=== PATIENT | female | born 1955 | race Caucasian/White ===

== ENCOUNTER 2017-02-12 12:15 | Outpatient (CLI) | payer MEDICARE | END 2017-02-12 12:16 | disposition home or self-care (01) | LOC: BICMAMMO 12:15 | PROVIDERS: ATTEND Family Medicine | DX: Z12.31 Encounter for screening mammogram for malignant neoplasm of breast (principal); Z80.3 Family history of malignant neoplasm of breast | CPT/HCPCS: 77063; 77067 ==

== ENCOUNTER 2017-07-30 13:42 | Outpatient (CLI) | payer MEDICARE | END 2017-07-30 13:43 | disposition home or self-care (01) | LOC: BICRAD 13:42 | PROVIDERS: ATTEND Anesthesiology Pain Medicine | DX: M79.5 Residual foreign body in soft tissue (principal); M96.1 Postlaminectomy syndrome, not elsewhere classified; G89.21 Chronic pain due to trauma; L08.9 Local infection of the skin and subcutaneous tissue, unspecified; R93.8 Abnormal findings on diagnostic imaging of other specified body structures ==

== ENCOUNTER 2017-08-02 10:47 | Outpatient (CLI) | payer MEDICARE ==
--- NOTE | 2017-08-02 12:20 | MRI ---
MRI RIGHT HINDFOOT WITHOUT CONTRAST: Date: 08/02/17 HISTORY: Foreign body. COMPARISON: Outside facility radiograph dated 07/30/17. FINDINGS: Bones: No acute fracture. No malalignment. Exam is somewhat limited due to motion artifact. Mild degenerative disease of the calcaneocuboid joint. Moderate midfoot degenerative changes. There a re erosions of the second and third tarsometatarsal joints. Ligaments: AITFL and PITFL are intact, as well as the ATFL, PTFL, and TFL. Superficial and deep deltoid ligament s are intact. Tendons: Achilles tendon intact. Extensor and flexor tendons are intact. Soft Tissues: At the region of interest markers, there is a focal area of skin and subcutaneous soft tissue swellin g. Fluid extending to near the medial margin of the cortex of the calcaneus. Underlying marrow signal intact. Calcaneal cortex intact. Likely a small sinus tract extending to skin. IMPRESSION: Corresponding to the recent radiographs, at the level of the radiopaque foreign object on the prior e xam, there is an area of skin thickening, subcutaneous edema, and likely a small sinus tract. No unde rlying osteitis or osteomyelitis. POS: [facility]
== END 2017-08-02 10:48 | disposition home or self-care (01) ==
LOC: MRI 10:47
PROVIDERS: ATTEND Anesthesiology Pain Medicine
DX: M79.5 Residual foreign body in soft tissue (principal); R60.0 Localized edema

== ENCOUNTER → 2017-10-23 | Day surgery (SDC) | payer MEDICARE ==
[2017-10-22 13:30] VITALS: BMI 41.1
[~2017-10-23] MED LIST: Bupivacaine/Epinephrine 0.25% 30 ML VIAL ONE; CEFAZOLIN/Water 2 GM/20 ML SYRINGE ONE; Fentanyl 100 MCG/2 ML VIAL ONE; Fentanyl 250 MCG/5 ML VIAL ONE; Lidocaine 2% 10 ML INJ ONE; Midazolam HCl 2 mg/2 ml Vial ONE; Promethazine HCl 25 MG/ML VIAL ONE
[2017-10-23 08:12] LABS: #Eosinphils 0.4 thou/uL (0.0-0.7); #Lymphocytes 1.6 thou/uL (1.20-3.40); #Monocytes 0.3 thou/uL (0.11-0.59); #Neutrophils 6.3 thou/uL (1.40-6.50); %Basophils 0.2 % (0.0-1.0); %Eosinophils 4.6 % (0.0-10.0); %Lymphocytes 18.7 % (21.0-51.0); %Monocytes 3.9 % (0.0-10.0); %Neutrophils 72.6 % (42.0-75.0); Hemoglobin 12.3 g/dL (12.0-16.0); Mean Corpuscular HGB CONC 33.4 g/dL (32.0-36.0); Mean Corpuscular Hemoglobin 28.1 pg (27.0-31.0); Mean Corpuscular Volume 84.3 fL (78.0-98.0); Platelet Count 193 thou/uL (130-400); RBC Distribution Width 14.9 % (11.5-14.5); Red Blood Cell (RBC) Count 4.39 mill/uL (4.20-5.40); White Blood Cell (WBC) Count 8.7 thou/uL (4.8-10.8)
[2017-10-23 08:39] LABS: ALT (SGPT) 8 U/L (8-55); AST (SGOT) 15 U/L (5-34); Albumin 3.9 g/dL (3.4-4.8); Alkaline Phosphatase 93 U/L (40-150); Anion Gap 15 mmol/L (10-20); BUN (Urea Nitrogen) 22 mg/dL (9.8-20.1); Bilirubin, Total 0.5 mg/dL (0.2-1.2); Calc. Creatinine Clearance 115 mL/min (70-130); Calcium 9.6 mg/dL (7.8-10.44); Carbon Dioxide 25 mmol/L (23-31); Chloride 103 mmol/L (98-107); Estimated GFR-MDRD 70; Globulin 3.5 g/dL (2.4-3.5); Glucose 113 mg/dL (80-115); Potassium 3.9 mmol/L (3.5-5.1); Protein, Total 7.4 g/dL (6.0-8.3); Sodium 139 mmol/L (136-145)
--- NOTE | 2017-10-23 13:43 | OP ---
DATE OF PROCEDURE: 10/23/2017 PREOPERATIVE DIAGNOSIS: Depleted pain pump. SURGEON: Mane Lantigua M.D. PROCEDURE PERFORMED: Removal and replacement of implantable programmable intrathecal pain pump. INDICATIONS: A 62-year-old female who has post-laminectomy syndrome who has had a functioning pain p ump for over 10 years that the life expectancy of the battery has depleted and she needed replacement . FINDINGS: Very contracted capsule, thick contracted capsule. PROCEDURE IN DETAIL: After informed consent was obtained, the patient was taken to the operating ileana m and given total intravenous anesthesia, placed in the supine position. Abdomen was prepped and fly ped in usual fashion. Local anesthesia infiltrated subcutaneously and deep with 0.5% Marcaine. A tr ansverse incision was performed through the old scar. The subcu divided sharply. The capsule was en countered. It was very thick. It was opened with a blade down to the pump and then further extended medially and laterally. The capsule was very contracted. In order to release it, I had to go both inferior and superior on the capsule, then was able to slowly release the pain pump from its capsule. I was able to remove the sutures that had held it in place and then deliver it outside. The CSF ch bridgette was cannulated and aspirated. We had good CSF flow. Then, the tubing was disconnected from th e old pump. The old pump was then moved to the back table after being labeled as such. It was then aspirated and all deliverable drug was removed from the old pump. The new pump was then primed by re moving the saline from its cavity and the drug was then placed within the new pump. The new pump was then brought up to the field and connected to the tubing. The tubing was secured with 0 silk suture tie. The cavity was thoroughly irrigated with saline. Two 2-0 Prolene sutures were placed to help keep it from rotating and then these were threaded through the channels on the upper portion of the p ain pump. The deliverable nipple was placed inferiorly into the pocket and the pain pump was tied do wn with the sutures. No tubing was anterior to the pain pump. The subcu was reapproximated with int errupted 2-0 Vicryl and the skin closed with running subcuticular 4-0 Rapide. Steri-Strips applied. Sterile bandage applied. The patient tolerated the procedure well and was transferred to recovery i n good condition. Sponge and needle count verified correct x2.
--- NOTE | 2017-10-28 08:25 | EKG ---
Test Reason : PREOP Blood Pressure : / mmHG Vent. Rate : 063 BPM Atrial Rate : 063 BPM P-R Int : 184 ms QRS Dur : 086 ms QT Int : 416 ms P-R-T Axes : 038 034 056 degrees QTc Int : 425 ms Normal sinus rhythm Normal ECG When compared with ECG of 29-DEC-2010 08:20, No significant change was found Confirmed by DR. Everardo GARCIA ([id number]) on 10/28/2017 8:25:07 AM Referred By: LALITHA Confirmed By:DR. Everardo GARCIA
== END ==
LOC: SDC 07:27
PROVIDERS: ATTEND Surgery
PROC: 0JPT0VZ Removal of Infusion Pump from Trunk Subcutaneous Tissue and Fascia, Open Approach (ICD-10-PCS; principal; 2017-10-23)
PROC: 0JH80VZ Insertion of Infusion Pump into Abdomen Subcutaneous Tissue and Fascia, Open Approach (ICD-10-PCS; 2017-10-23)
DX: Z45.1 Encounter for adjustment and management of infusion pump (principal); Z79.02 Long term (current) use of antithrombotics/antiplatelets; Z79.82 Long term (current) use of aspirin; Z79.899 Other long term (current) drug therapy; Z88.2 Allergy status to sulfonamides; Z88.8 Allergy status to other drugs, medicaments and biological substances; Z88.1 Allergy status to other antibiotic agents
CPT/HCPCS: 62362; 80053; 85025; 93005; 96374 ×2; C1772; 36415; 93010; J2250; J2550; J3010

== ENCOUNTER 2017-10-30 13:20 | Outpatient (CLI) | payer MEDICARE ==
--- NOTE | 2017-10-30 15:42 | MRI ---
CERVICAL SPINE MRI WITHOUT CONTRAST: Date: 10/30/17 HISTORY: Pain. COMPARISON: 02/18/13. TECHNIQUE: Cervical spine MRI is performed without intravenous Gadolinium administration. Multisequential, multi planar imaging is performed. FINDINGS: Appropriate T1 marrow signal intensity of the cervical vertebra. Cervical spine vertebral body height is maintained. No fracture. 2.7 mm anterolisthesis of C3 upon C4, 2.8 mm retrolisthesis of C5 upon C 6. No significant STIR hyperintensity to suggest vertebral body edema or ligamentous injury. Visualized brain parenchyma, cervicomedullary junction, cervical cord, and the upper thoracic cord quinn ve a normal size and signal intensity. C2-C3: No significant disc osteophyte complex. No significant central canal stenosis. Foramina are patent. C3-C4: No significant disc osteophyte complex. Severe right and moderate left foraminal narrowing. C4-C5: Broad based disc osteophyte complex abuts the thecal sac. There is flattening of the ventral thecal s ac and deformity of the cervical cord. Moderate central canal stenosis. Severe right and moderate lef t foraminal narrowing due to degenerative changes of the uncovertebral joint. C6-C7: Broad based disc osteophyte complex abuts the thecal sac. Ventral subarachnoid space is effaced. Ther e is flattening of the cervical cord. Mild to moderate central canal stenosis. Moderate bilateral for aminal narrowing. C6-C7: Broad based disc osteophyte complex abuts the thecal sac. Ventral CSF signal intensity is effaced in the midline. There is mild deformity of the cord. Mild to moderate central canal stenosis. Mild bilat eral foraminal narrowing. C7-T1: No high grade central canal stenosis or high grade neural foraminal narrowing. IMPRESSION: 1. Degenerative changes of the cervical spine as above. There is significant central canal stenosis at C4-C5. 2. There appears to be significant right neural foraminal narrowing at C3-C4. Additional neural fora lora narrowing as above. POS: [facility]
== END 2017-10-30 13:21 | disposition home or self-care (01) ==
LOC: MRI 13:20
PROVIDERS: ATTEND Psychiatry & Neurology Neurology
DX: R29.898 Other symptoms and signs involving the musculoskeletal system (principal); M47.892 Other spondylosis, cervical region; M48.02 Spinal stenosis, cervical region; M99.81 Other biomechanical lesions of cervical region
CPT/HCPCS: 72141

== ENCOUNTER 2017-12-16 08:28 | Day surgery (SDC) | payer MEDICARE ==
[2017-12-13 14:08] VITALS: BMI 40.4
--- NOTE | 2017-12-15 23:06 | HP ---
HISTORY OF PRESENT ILLNESS: Ms. Bonilla is a 62-year-old woman who presents for evaluation of sudden onset and progression of left-sided hand numbness, weakness, and muscular atrophy, particularly in t he hand that onset of August. She has an MRI of her neck which is negative for any major pathology oth er than moderate stenosis centrally in the upper cervical spine. She denies any significant right up per extremity symptoms. Of note, she also has an EMG performed that reveals ulnar neuropathy of the left upper extremity . PAST MEDICAL HISTORY: Significant for CVA, chronic pain, gastroesophageal reflux disease, hyperchole sterolemia. MEDICATIONS: Aspirin, bumetanide, clonazepam, clonidine, clopidogrel, Crestor, ranitidine, sertralin e. PHYSICAL EXAMINATION: The patient is alert and oriented x3. Gait is altered secondary to stroke sym ptoms. She does use a walker to ambulate. Right upper extremity unaffected, normal strength. Left upper extremity movements seem to be intrinsic hand muscles of the left hand as well as the hypothena r eminence. 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 Negative Tinel's at the ulnar nerve and cubital tunnel of the left upper extremity. ASSESSMENT: Ulnar neuropathy. PLAN: Dr. Bell met with the patient and reviewed her EMG and symptoms and ultimately advocated for a left ulnar nerve decompression. He explained to the patient, the risks, benefits, and alternatives of the procedure. The patient expressed understanding and would like to move forward surgery as dis cussed. I do believe the patient is mentally competent and capable of making medical decision for he rself and we will move forward with surgery as planned. Taco Dupree PA-C, dictating for Bonifacio Bell M.D.
[2017-12-16] MEDS ORDERED: PROPOFOL 200 MG/20 ML VIAL ONE (09:21)
[2017-12-16] MEDS ORDERED: Lidocaine 1% PF 5 ML VIAL ONE (09:21)
[2017-12-16] MEDS ORDERED: Ondansetron PF 4 MG/2 ML Vial ONE (09:21)
[2017-12-16] MEDS ORDERED: Dexamethasone 20 MG/5 ML VIAL ONE (09:21)
[2017-12-16] MEDS ORDERED: Bupivacaine HCl 0.5%/Epinephrine 1:200,000/PF 30 ml Vial ONE (09:39)
[2017-12-16] MEDS ORDERED: Fentanyl 100 MCG/2 ML VIAL ONE (09:40)
[2017-12-16] MEDS ORDERED: CEFAZOLIN 2 GM/50 ML BAG ONE (09:48)
--- NOTE | 2017-12-16 10:47 | OP ---
DATE OF SERVICE: 12/16/2017 SURGEON: Bonifacio Bell M.D. TACKING STITCH REMOVER: Taco Dupree PA-C. INDICATIONS: Hand weakness, muscle atrophy and numbness. DIAGNOSES: Left ulnar neuropathy with muscle atrophy and weakness. PROCEDURE: Left ulnar nerve decompression. ANESTHESIA: General. TECHNIQUE: The patient was brought into the operating room and placed under general anesthesia. She was placed on the table in supine position. Her arm was prepped and draped up to the level of the a xilla. A linear incision was planned over the ulnar groove at the level of the elbow. This area was carefully infiltrated with lidocaine. After prepping and draping and after an appropriate operative pause, the incision was created. A self-retaining retractor was placed. The ulnar nerve could be p alpated within the ulnar groove. An adhesiolysis was performed along the nerve extending both proxim al and distal directions. The nerve was found to be compressed rather substantially by adhesions. T he nerve also had a flattened appearance as well. After decompressing the nerve, the wound was irrig ated. Hemostasis was maintained throughout. The wound was then closed in a single layer technique. The procedure came to an end without known complication.
== END 2017-12-16 13:30 | disposition home or self-care (01) ==
LOC: SDC 08:28
PROVIDERS: ATTEND Neurological Surgery
PROC: 01N40ZZ Release Ulnar Nerve, Open Approach (ICD-10-PCS; principal; 2017-12-16)
DX: G56.22 Lesion of ulnar nerve, left upper limb (principal); K21.9 Gastro-esophageal reflux disease without esophagitis; E78.00 Pure hypercholesterolemia, unspecified; Z86.73 Personal history of transient ischemic attack (TIA), and cerebral infarction without residual deficits; Z79.02 Long term (current) use of antithrombotics/antiplatelets; Z79.82 Long term (current) use of aspirin; Z79.899 Other long term (current) drug therapy; Z88.1 Allergy status to other antibiotic agents; Z88.2 Allergy status to sulfonamides; Z88.8 Allergy status to other drugs, medicaments and biological substances
CPT/HCPCS: J0670; J3010

== ENCOUNTER 2017-12-20 00:12 | Emergency (ER) | payer MEDICARE ==
--- NOTE | 2017-12-20 09:18 | CT ---
PRELIMINARY REPORT/[facility]/EMERGENTY AFTER-HOURS PROCEDURE CT Head Without Intravenous Contrast EXAM DATE/TIME: 12/20/2017 12:29 AM CLINICAL HISTORY: 62 years old, female; Injury or trauma; Fall; Initial encounter; Blunt trauma (contusions or hematoma s); Consciousness not specified; Patient HX: Fell at home, has swelling to RT islam, is currently of f blood thinners pending surgery in a few days. TECHNIQUE: Axial computed tomography images of the head/brain without intravenous contrast. COMPARISON: No relevant prior studies available. FINDINGS: Brain: No acute intracranial hemorrhage or mass effect. Old infarct in the inferior left cerebellum. No definite acute infarct by CT. Ventricles: Ventricle size is normal for age. Bones/joints: No definite acute skull fracture. Sinuses: Included paranasal sinuses are essentially clear. Mastoid air cells: No significant acute finding. Soft tissues: Evidence for soft tissue injury/scalp hematoma in the frontal region. IMPRESSION: 1. No acute intracranial bleed or mass effect. 2. Old infarct in the inferior left cerebellum. 3. Other findings discussed above. Thank you for allowing us to participate in the care of your patient. Dictated and Authenticated by: Raffaele Perla MD 12/20/2017 12:58 AM Central Time ([place] & [place]) FINAL REPORT CT HEAD NONCONTRAST: DATE: 12/20/2017. TIME: Performed on an emergency basis at 0030 hours. HISTORY: Fall. Head injury. FINDINGS: Agree with the preliminary report by Dr. Perla by [facility]. Prominent swelling and hematoma over the right frontal calvarium. No acute intracranial abnormalities are demonstrated. POS: [facility]
== END 2017-12-20 02:10 | disposition home or self-care (01) ==
LOC: ERS 00:12
DX: S00.83XA Contusion of other part of head, initial encounter (principal); F32.9 Major depressive disorder, single episode, unspecified; E78.5 Hyperlipidemia, unspecified; W18.30XA Fall on same level, unspecified, initial encounter
CPT/HCPCS: 70450

== ENCOUNTER 2018-01-07 12:53 | Outpatient (CLI) | payer MEDICARE ==
--- NOTE | 2018-01-07 17:58 | CT ---
CT RIGHT ELBOW WITHOUT CONTRAST: Date: 01/07/18 HISTORY: Preop. Fall. COMPARISON: None. FINDINGS: Bones: There is circumferential osteophyte formation of the radial head. There is a small, 2.0 x 4.0 mm, lik brandt annular ligament calcification, less likely a free body. Large osteophyte formation of the olecra non of the trochlea. Large coracoid process osteophyte formation is present. There is some enthesopat hic change in the triceps tendon insertion of the olecranon. There is extensive hypertrophic bone formation within the anterior and posterior olecranon fossa, whi ch may be from a prior fracture. Muscles: Muscle bulk is unremarkable. IMPRESSION: 1. Large volume new bone formation within the anterior and posterior olecranon fossa which can cause impingement with flexion and extension. 2. Circumferential osteophyte formation of the radial head. 3. Mild ossification of the annular ligament. 4. No definite large free bodies are appreciated. 5. Mild enthesopathic changes of the triceps tendon insertion. POS: [facility]
== END 2018-01-07 12:54 | disposition home or self-care (01) ==
LOC: CT 12:53
PROVIDERS: ATTEND Orthopaedic Surgery
DX: M25.521 Pain in right elbow (principal); M25.741 Osteophyte, right hand; M67.843 Other specified disorders of tendon, right hand

== ENCOUNTER 2018-03-11 12:45 | Outpatient (CLI) | payer MEDICARE ==
--- NOTE | 2018-03-11 14:28 | RAD ---
PA AND LATERAL CHEST: History: Cough and congestion. FINDINGS: The heart size is normal. The lungs are well expanded without focal areas of consolidation, pneumotho races or pleural effusions. There are degenerative changes in the spine. IMPRESSION: No radiographic evidence of acute cardiopulmonary process. POS: [facility]
== END 2018-03-11 12:46 | disposition home or self-care (01) ==
LOC: SCSRAD 12:45
PROVIDERS: ATTEND Family Medicine
DX: R05 Cough (principal)
CPT/HCPCS: 71046

== ENCOUNTER 2018-04-04 14:13 | Outpatient (CLI) | payer MEDICARE | END 2018-04-04 14:14 | disposition home or self-care (01) | LOC: BICMAMMO 14:13 | PROVIDERS: ATTEND Family Medicine | DX: Z12.31 Encounter for screening mammogram for malignant neoplasm of breast (principal); R92.1 Mammographic calcification found on diagnostic imaging of breast; Z80.3 Family history of malignant neoplasm of breast | CPT/HCPCS: 77063; 77067 ==

== ENCOUNTER 2018-05-10 18:49 | Inpatient (IN) | payer MEDICARE ==
[~2018-05-10 18:49] MED LIST changes: -Bupivacaine/Epinephrine 0.25% 30 ML VIAL ONE; -CEFAZOLIN/Water 2 GM/20 ML SYRINGE ONE; -Fentanyl 100 MCG/2 ML VIAL ONE; -Fentanyl 250 MCG/5 ML VIAL ONE; +ISOVUE-370 76%-LOCM 1 ML ONE; -Lidocaine 2% 10 ML INJ ONE; -Midazolam HCl 2 mg/2 ml Vial ONE; -Promethazine HCl 25 MG/ML VIAL ONE
[2018-05-10 19:31] LABS: #Eosinphils 0.2 thou/uL (0.0-0.7); #Lymphocytes 0.9 thou/uL (1.20-3.40); #Monocytes 0.7 thou/uL (0.11-0.59); #Neutrophils 8.9 thou/uL (1.40-6.50); %Basophils 0.1 % (0.0-1.0); %Lymphocytes 8.5 % (21.0-51.0); %Monocytes 6.3 % (0.0-10.0); %Neutrophils 83.2 % (42.0-75.0); Hemoglobin 10.2 g/dL (12.0-16.0); Mean Corpuscular HGB CONC 32.7 g/dL (32.0-36.0); Mean Corpuscular Hemoglobin 26.9 pg (27.0-31.0); Mean Corpuscular Volume 82.3 fL (78.0-98.0); Mean Platelet Volume 7.4 fL (7.4-10.4); Platelet Count 187 thou/uL (130-400); RBC Distribution Width 15.3 % (11.5-14.5); Red Blood Cell (RBC) Count 3.81 mill/uL (4.20-5.40); White Blood Cell (WBC) Count 10.7 thou/uL (4.8-10.8)
[2018-05-10 19:56] LABS: ALT (SGPT) 24 U/L (8-55); AST (SGOT) 24 U/L (5-34); Albumin 3.3 g/dL (3.4-4.8); Alkaline Phosphatase 134 U/L (40-150); Anion Gap 12 mmol/L (10-20); BUN (Urea Nitrogen) 24 mg/dL (9.8-20.1); Bilirubin, Total 0.5 mg/dL (0.2-1.2); Calc. Creatinine Clearance 0 mL/min (70-130); Calcium 9.3 mg/dL (7.8-10.44); Carbon Dioxide 31 mmol/L (23-31); Chloride 98 mmol/L (98-107); Estimated GFR-MDRD 67; Globulin 3.7 g/dL (2.4-3.5); Glucose 132 mg/dL (80-115); Potassium 3.4 mmol/L (3.5-5.1); Sodium 138 mmol/L (136-145)
[2018-05-10] MEDS ORDERED: diphenhydrAMINE 50 MG/ML VIAL ONE (20:02)
[2018-05-10] MEDS ORDERED: Vancomycin HCl 1.5 GM in Sodium Chloride 0.9% 250 ML 300 ML IVPB ONE (20:30)
--- NOTE | 2018-05-10 20:58 | CT ---
FCT abdomen and pelvis with IV contrast. Oral contrast was not administered. INDICATIONS: Abdominal pain. Cellulitis surrounding the implanted pump device right abdominal wall. COMPARISON: CT abdomen from 2004 FINDINGS: Lung bases are clear Liver, spleen, and pancreas appear unremarkable. Stomach and duodenum appear unremarkable. Adrenal glands appear normal. Kidneys appear unremarkable. Collecting structures and urinary bladder appear unremarkable. Small bowel loops are normal caliber and exhibit normal fold pattern. Appendix not identified. Colon is unremarkable. Aorta is normal caliber. No evidence of retroperitoneal or mesenteric adenopathy. Patient appears to be posthysterectomy. There is an electronic implanted device in subcutaneous tissues right lateral abdomen. The lower righ t lateral skin and subcutaneous tissues are not imaged on this study due to patient's body size. Ther e does appear to be a loculated fluid collection in subcutaneous tissues measuring 7 cm AP dimension by 4.4 cm in axial plane. Metallic lead from electronic device traverses through this low density col lection. Hematoma or abscess cannot be excluded. Osseous structures appear unremarkable. IMPRESSION: 1. Circumscribed fluid density collection in the subcutaneous tissues along the lateral right abdomin al wall with measurements given above. This is posterior to the implanted electronic device. Leads fr om this device traverses through this collection. Abscess cannot be excluded.
[2018-05-10] MEDS ORDERED: cefTRIAXone\\ROCEPHIN 2 GM VIAL ONE (23:31)
[2018-05-11] MEDS ORDERED: Ondansetron ODT 4 MG TAB SL PRN (00:48)
[2018-05-11] MEDS ORDERED: Ondansetron PF 4 MG/2 ML Vial IVP PRN ×2 (00:48→14:59)
[2018-05-11] MEDS ORDERED: Acetaminophen 325 MG TAB PO PRN (00:48)
[2018-05-11 01:54] VITALS: BMI 42.9
[2018-05-11] MEDS: Sodium Chloride 0.9% 1,000 ML IV SCH ×3 (02:30→18:30)
[2018-05-11] MEDS ORDERED: Prevnar 13-Val Conj/PF 0.5 ML SYRINGE IM ONE (09:00)
[2018-05-11] MEDS ORDERED: Ondansetron PF 4 MG/2 ML Vial ONE ×2 (09:07→17:50)
[2018-05-11] MEDS ORDERED: PROPOFOL 200 MG/20 ML VIAL ONE (09:07)
[2018-05-11] MEDS ORDERED: Lidocaine 1% PF 5 ML VIAL ONE (09:07)
[2018-05-11] MEDS ORDERED: ePHEDrine 50 MG/ML VIAL ONE (09:07)
[2018-05-11] MEDS ORDERED: Rocuronium Bromide 10 MG/ML (10ML VIAL) ONE (09:07)
[2018-05-11 12:11] VITALS: BP 103/50
--- NOTE | 2018-05-11 12:36 | HP ---
HISTORY OF PRESENT ILLNESS: Kasey Bonilla is a 62-year-old female with chronic back pain. She has had multiple back surgeries and performed dialysis in the past. She has had a pain pump change, right lower quadrant by Dr. Lantigua last year. I performed a breast biopsy in 1998. Dr. Lantigua has been replacing her pain pumps periodically. The patient has been treated by Dr. Brown on oral Keflex for cellulitis around her pain pump, right lower quadrant. She developed drainage, presented to the emergency room last night. CAT scan obtained revealed pain pump and connectors. The patient was admitted with IV antibiotics. She is on vancomycin. White count 10, hemoglobin 10. Basic metabolic profile normal. BUN 24. She has been placed on vancomycin and ceftazidime. ALLERGIES: ASPIRIN, SULFA. SHE DEVELOPS PRURITUS WITH VANCOMYCIN. SHE HAS TAKEN BENADRYL FOR HER CURRENT VANCOMYCIN. PAST SURGICAL HISTORY: Multiple back surgeries, bladder suspension, repeat rectocele, cystocele repair, hysterectomy, appendectomy, multiple pain pumps placed and exchanged and revised, percutaneous closure of PFO 8 years ago, cardiac stress test at that time, cerebellar stroke sustained as a result of patent PFO, which has been resolved percutaneously. Ulnar nerve release, left arm last year. Pain medicine physician Dr. Brown. HOME MEDICATIONS: 1. Milk of magnesia. 2. Claritin. 3. Plavix. 4. Keflex. 5. Bumex. 6. Crestor. 7. Ranitidine. 8. Aspirin. 9. Cleocin. 10. Sertraline. PHYSICAL EXAMINATION: VITAL SIGNS: Height 5 foot 1 inch, 227 pounds, 42 BMI, 98.3, 88, 127/79. LUNGS: Clear to auscultation. CARDIAC: Regular rate and rhythm without murmur or gallop. ABDOMEN: Soft and nontender, right lower quadrant, obese, pannus, stretch russo, opening with purulent drainage overlying her pain pump. Palpable tubing to the lumbar area palpated, right paralumbar. Multiple scars, lower lumbar for multiple back surgeries. ASSESSMENT/PLAN: Pain pump, clonidine, Dilaudid, infection. PLAN: Removal of the tubing and pain pump. Risk of infection, bleeding, and reoperation discussed. We will involve Dr. Brown and to prevent withdrawals from chronic Dilaudid and clonidine intake. She understands risks and benefits, consents. Job ID: [id number]
[2018-05-11] MEDS ORDERED: diphenhydrAMINE 50 MG/ML VIAL ONE (13:46)
[2018-05-11] MEDS ORDERED: Lidocaine 2% PF 5 ML VIAL ONE (14:20)
[2018-05-11] MEDS ORDERED: Lidocaine 1% (PF) 30 ML VIAL ONE (14:20)
[2018-05-11] MEDS ORDERED: Bacitracin Zinc Ointment 30 gm TUBE ONE ×2 (14:20→14:21)
[2018-05-11] MEDS ORDERED: Bupivacaine HCl 0.5%/Epinephrine 1:200,000/PF 30 ml Vial ONE (14:20)
[2018-05-11] MEDS ORDERED: Midazolam HCl 2 mg/2 ml Vial ONE (14:22)
[2018-05-11] MEDS ORDERED: Fentanyl 100 MCG/2 ML VIAL ONE (14:22)
[2018-05-11] MEDS ORDERED: Zolpidem Tartrate 5 MG TAB PO PRN (14:59)
[2018-05-11] MEDS ORDERED: Promethazine HCl 25 MG/ML VIAL IM PRN (14:59)
[2018-05-11] MEDS ORDERED: Naloxone HCl 0.4 mg/ml Vial IV PRN (14:59)
[2018-05-11] MEDS ORDERED: diphenhydrAMINE 50 MG/ML VIAL IM PRN (14:59)
[2018-05-11] MEDS ORDERED: diphenhydrAMINE 50 MG/ML VIAL IVP PRN (14:59)
[2018-05-11] MEDS ORDERED: diphenhydrAMINE 25 MG CAP PO PRN (14:59)
[2018-05-11] MEDS ORDERED: Communication Order-Pharmacy FS SCH (15:00)
[2018-05-11] MEDS: Vancomycin HCl 1.5 GM in Sodium Chloride 0.9% 250 ML 300 ML IVPB SCH (15:05)
[2018-05-11] MEDS ORDERED: Bupivacaine/Epinephrine 0.25% 30 ML VIAL ONE (15:35)
--- NOTE | 2018-05-11 16:06 | CON ---
DATE OF CONSULTATION: 05/11/2018 This is a consultation for pain management. REASON FOR CONSULTATION: Chronic pain, intrathecal pain pump. HISTORY OF PRESENT ILLNESS: Ms. Bonilla is a 62-year-old female, who is a patient of Dr. Brown's, recently admitted to the emergency room last evening secondary to erythema, drainage, and increased tenderness to the right lateral lower quadrant abdominal area. She was determined to have an abscess that was likely stemming from her intrathecal pain pump. She has an extensive history of chronic pain with multiple lumbar surgeries in the past, which have failed and severe arachnoiditis with chronic pain, thus leading to an intrathecal morphine pump, which has been managed by Dr. Brown for several years. She has undergone several pump revisions in the past, mostly this was done with Dr. Lantigua. She has a history of abdominal wall cellulitis in the past as well, which has resolved; however, recently, it has returned. She was being followed closely by Dr. Brown in his outpatient clinic for the past week for worsening of the symptoms including erythema and swelling. She has been treated with 1 g of Rocephin x3 doses starting on May 06, 2018, and the last dose given on May 08 in the clinic. She was also started on Keflex 500 mg tablet twice a day orally on May 07. She had improved up to 80% from the initial dose of Rocephin and it was thought that the cellulitis in the abdominal region was resolving. She presented to the emergency room last evening with worsening of the symptoms as well as increased erythema and drainage from the right lower lateral abdominal quadrant region. She also has increased erythema and redness in the bilateral medial thighs as well as across the abdominal region. She denies any nausea or vomiting. No fever at home. No increased pain reported. Her current dose in the intrathecal pump is hydromorphone 10 mg for 24 hours with clonidine 40 mcg for [address] Brown has spoken with the emergency room physician in regard to Ms. Bonilla's state and the decision has been made that the pump needed to be removed. The patient has been admitted under surgical services and the pump will be removed today by Dr. Gamble. The patient is seen today in her room awaiting surgery. Family is at bedside. She is in no distress. She seems to be in good spirits and again denies any pain. PAST MEDICAL HISTORY: Chronic lumbar pain, history of osteomyelitis, cervical stenosis, cerebral stroke. PAST SURGICAL HISTORY: Includes multiple lumbar surgeries, spinal cord stimulator, appendectomy, hysterectomy, ulnar nerve transposition, bladder suspension, repair of rectocele and cystocele, multiple pain pumps placed as well as revised, percutaneous closure of PFO. SOCIAL HISTORY: The patient is , supportive family, no history of drinking alcohol or IV drug use. FAMILY HISTORY: Positive only for heart disease in her mother and father. ALLERGIES: SHE REPORTS AN ALLERGY TO ASPIRIN, SULFA, VANCOMYCIN, BUTORPHANOL WELL CEFTAZIDINE. MEDICATIONS: Include: 1. Claritin. 2. Plavix. 3. Keflex. 4. Bumex. 5. Crestor. 6. Ranitidine. 7. Aspirin. 8. Cleocin. 9. Sertraline. REVIEW OF SYSTEMS: Negative for all symptoms except pertinent positives discussed above in history of present illness. IMAGING: CT indicates circumcised fluid, density collection in the subcutaneous tissues along the lateral right abdominal wall, which is posterior to the implanted device. The leads appear to travel traversely throughout the fluid collection. PHYSICAL EXAMINATION: VITAL SIGNS: Blood pressure 129/80, pulse 97.6, heart rate 56, respirations 16 , she is saturating 100% on room air. GENERAL APPEARANCE: The patient is alert and oriented x3, in no apparent distress. Her family is surrounding her. She is in good spirits. HEENT: Normocephalic, atraumatic. RESPIRATIONS: Bilateral symmetric expansion of the chest wall. Breathing is unlabored and in no distress. CARDIOVASCULAR: No chest pain. Peripheral pulses +2. No peripheral edema. ABDOMEN: Soft, nontender, nondistended. There is a dressing in the right lower abdominal quadrant with erythema noted to bilateral medial thighs as well as across the abdominal area. Abdomen is obese. The tubing is palpable in the right lumbar region posteriorly. MUSCULOSKELETAL: The patient is moving all extremities well against gravity. There is some diffuse lumbar tenderness with palpation. No localized pain on the vertebral bodies. NEUROLOGIC: Neurologically, no clonus. No tremors. Again, alert, and oriented x3. ASSESSMENT AND PLAN: Cellulitis/abscess of intrathecal pain pump for chronic lumbar pain. The plan is for surgical removal of intrathecal pain pump today. Consult Infectious Disease for assist with infectious process. The patient is currently on vancomycin IV. The patient will continue to be monitored closely for withdrawal after removal of intrathecal pain pump, which was dosed at hydromorphone 10 mg for 24 hours and clonidine [address] Brown has spoken with cryptologic support specialist in regarding to her current dose of narcotics, she will continue to be monitored closely in the postoperative period. Job ID: [id number] [id number]
[2018-05-11] MEDS ORDERED: HYDROmorphone 2 MG/ML VIAL ONE (17:42)
--- NOTE | 2018-05-11 19:03 | OP ---
DATE OF PROCEDURE: 05/11/2018 PREOPERATIVE DIAGNOSES: Chronic back pain, infected intrathecal pain pump, morbid obesity, right lower quadrant pain pump pocket. PROCEDURES PERFORMED: Removal of intrathecal catheter via paralumbar approach, removal of entire length of intrathecal pain pump catheter requiring counter incision, removal of infected pain pump with resection of subcutaneous capsule as able, and wound VAC application by Wound Care team. ANESTHESIA: General, local 0.25% Marcaine with epinephrine 60 mL. DESCRIPTION OF PROCEDURE: The patient was taken to the operating room, where under general anesthesia in the left lateral decubitus position using sims bag, she was probably positioned with axillary roll. Her back, flank, and abdomen were prepared with ChloraPrep in routine from clean to dirty. There was an open wound over the pain pump in the right lower quadrant that was sequestered away from the wound. first turned towards the paralumbar area. I could palpate some hard material that I felt was the catheter. The incision was made. This was dissected free, but these were just dystrophic calcifications that were ossified and excised and the subcutaneous tissue was approximated with 3-0 Monocryl, skin with subdermal 4-0 Monocryl and [place] glue applied. Then, I reviewed her CAT scan. I could not see the catheter well. I then brought in fluoroscopy and was able to see the tubing and an area that I marked. An incision was made over that area and carried down through the skin and subcutaneous tissue and carefully the catheter was dissected free and followed down to the bone anchor site before it entered the spine. This anchor device was dissected free, catheter dissected free and catheter removed from the epidural space. There was spinal fluid that was leaking and the small defect closed with 4-0 Monocryl noting absence of any leakage. Subcutaneous tissues overlying this were closed in interrupted layers of 4-0 Monocryl and 3-0 Monocryl and then this incision closed with 3-0 Monocryl and 4-0 Monocryl and [place] glue applied. I then turned my attention to the infected portion of the wound. This incision was opened and copious amount of purulent material evacuated, irrigated. The pain pump was freed, the catheter freed and carefully dissected free. It was difficult to remove and a small counter incision was made to facilitate this. Once the catheter was free from this, I was able to free the rest of the catheter intact and discarded. This counter incision was closed with yevgeniy and OpSite dressing applied. The infected wound was then excised with capsule and the subcutaneous tissue capsule was left over the fascia. Hemostasis gained with cautery. Wound Care Team arrived to place a wound VAC. The patient tolerated the procedure well. Job ID: [id number]
[2018-05-11] MEDS ORDERED: COLON CLEANSE PO SCH (21:00)
[2018-05-11] MEDS: Aspirin 81 mg Enteric Coated Tablet PO SCH (21:07)
[2018-05-11] MEDS: Loratadine 10 MG TAB PO SCH (21:07)
[2018-05-11] MEDS: Rosuvastatin 20 MG TAB PO SCH (21:08)
[2018-05-11] MEDS: Famotidine 20 MG TAB PO SCH (21:08)
[2018-05-11] MEDS: Cephalexin 250 MG CAP PO SCH (21:08)
[2018-05-11] MEDS: Potassium Chloride 10 MEQ TAB PO SCH (21:08)
[2018-05-11] MEDS: Milk Of Magnesia 30 ML UDCUP PO SCH (21:09)
[2018-05-12] MEDS: diphenhydrAMINE 50 MG/ML VIAL IVP SCH ×2 (01:17→13:52)
[2018-05-12] MEDS: Vancomycin HCl 1.5 GM in Sodium Chloride 0.9% 250 ML 300 ML IVPB SCH ×2 (01:17→13:52)
[2018-05-12] MEDS: Bumetanide 1 MG TAB PO SCH (08:19)
[2018-05-12] MEDS: Potassium Chloride 10 MEQ TAB PO SCH ×2 (08:20→20:26)
[2018-05-12] MEDS: Polyethylene Glycol 3350 17 GM Packet PO SCH ×2 (08:20→08:26)
[2018-05-12] MEDS: Enoxaparin Sodium 40 MG/0.4 ML SYRINGE SC SCH (08:20)
[2018-05-12] MEDS: Clopidogrel Bisulfate 75 MG TAB PO SCH (08:20)
[2018-05-12] MEDS: Cephalexin 250 MG CAP PO SCH ×2 (08:23→20:27)
[2018-05-12] MEDS ORDERED: fentaNYL 75 mcg/hour Patch TD SCH (09:30)
[2018-05-12] MEDS ORDERED: predniSONE 50 MG TAB PO SCH (11:30)
[2018-05-12] MEDS: Hydrocortisone 1% Cream 30 GM TUBE TOP SCH ×3 (11:51→21:00)
[2018-05-12 13:33] LABS: Vancomycin, Trough 17.2 ug/mL
[2018-05-12] MEDS: Sodium Chloride 0.9% 1,000 ML IV SCH (13:52)
--- NOTE | 2018-05-12 15:30 | PRG ---
DATE OF SERVICE: 05/12/2018 SUBJECTIVE: Ms. Bonilla is doing well today. She is in ICU, monitored for her Dilaudid and clonidine withdrawal symptoms. She is on SUPERVISOR GRIPS Dilaudid. Fentanyl patch had been ordered by Dr. Brown. She complains of pain in her lower back and pelvis that she always has chronically. OBJECTIVE: LUNGS: Clear to auscultation. CARDIAC: Regular rate and rhythm without murmur or gallop. ABDOMEN: Soft and nontender. Wound VAC on the wound. LABORATORY DATA: Her laboratories are normal this morning. Gram-negative rods in her abdominal wound. ASSESSMENT AND PLAN: Awaiting Dr. Gama' consult. Currently, she is allergic to sulfa and vancomycin. She is on vancomycin. We will discontinue this as she is having a rash from this and pruritus. We will put her on Levaquin and await Dr. Gama' consult. Job ID: [id number]
[2018-05-12] MEDS: HYDROmorphone 10 mg/100 ml CADD IVPB PRN (16:52)
--- NOTE | 2018-05-12 18:01 | EKG ---
Test Reason : Blood Pressure : / mmHG Vent. Rate : 078 BPM Atrial Rate : 078 BPM P-R Int : 158 ms QRS Dur : 088 ms QT Int : 404 ms P-R-T Axes : 025 035 -24 degrees QTc Int : 460 ms Normal sinus rhythm Nonspecific ST and T wave abnormality Abnormal ECG When compared with ECG of 23-OCT-2017 08:32, Nonspecific T wave abnormality now evident in Inferior leads Confirmed by GONZALES RAMIREZ (2) on 05/12/2018 6:01:16 PM Referred By: Confirmed By:GONZALES RAMIREZ
[2018-05-12] MEDS: Loratadine 10 MG TAB PO SCH (20:26)
[2018-05-12] MEDS: Rosuvastatin 20 MG TAB PO SCH (20:26)
[2018-05-12] MEDS: Aspirin 81 mg Enteric Coated Tablet PO SCH (20:27)
[2018-05-12] MEDS: Famotidine 20 MG TAB PO SCH (20:27)
[2018-05-12] MEDS: Milk Of Magnesia 30 ML UDCUP PO SCH (20:53)
--- NOTE | 2018-05-12 21:19 | PRG ---
DATE OF SERVICE: 05/12/2018 SUBJECTIVE: Ms. Bonilla is doing well now, postop day 1, after removal of intrathecal drug delivery system catheter, anchor, and programmable pump. Infection seems to be well controlled at present. From my perspective, I do not see any significant clonidine withdrawals or evidence of severe narcotic withdrawals. She currently has a fentanyl patch that ordered this morning at 75 mcg. She does have some low back pain, but it is typical for her normal pain pattern. She has no diaphoresis, rhinorrhea, or diarrhea. No nausea or vomiting. OBJECTIVE: VITAL SIGNS: She is afebrile, blood pressure is 130/60. There are no sequences of hypertension on her ICU record. Her pulse is 70. GENERAL: She is alert, oriented, and resting comfortably. States her pain level is at 3/10. LUNGS: Clear. HEART: Regular. ABDOMEN: Soft and nontender. The wound VAC is in place over the prior pump site. LABORATORY DATA: Reveals no significant white count. Culture is Klebsiella. ASSESSMENT AND PLAN: The patient is actually doing remarkably well on postop day 1 from removal of an intrathecal catheter and drug delivery system. I would have expected significant clonidine and narcotic withdrawal at this point. I am not seeing that in her physical examination. It is likely that the pump has been nonfunctioning for some time. We will continue to observe over the next 24 hours in the ICU. If she continues to do well, we can send her to the floor and home with wound care or possibly to rehab. With respect to her infection and antibiotic choices, we await Dr. Gama consultation. Job ID: [id number]
--- NOTE | 2018-05-12 21:30 | CON ---
DATE OF CONSULTATION: 05/12/2018 HISTORY OF PRESENT ILLNESS: Kasey Bonilla is a 62-year-old who had to have a pain pump and associated hardware removed for an infection. She said she spontaneously started draining mixture of serous and chocolate colored fluid from right lower quadrant. She subsequently has had surgery for this. PAST MEDICAL HISTORY: Remarkable for: 1. Multiple back surgeries with chronic indwelling pain pump and an infection related to that in the past. 2. History of bladder suspension. 3. History of rectocele, cystocele repair. 4. Status post appendectomy and hysterectomy. 5. History of patent foramen ovale closure 8 years ago. 6. History of a stroke as a result of her PFO. 7. History of an ulnar nerve translocation. SOCIAL HISTORY: She is nonsmoker and nondrinker. FAMILY: Unknown. ALLERGIES: SHE REPORTS INTOLERANCE TO ASPIRIN AND SULFA. ALSO SHE SAYS VANCOMYCIN ALLERGY. REVIEW OF SYSTEMS: Ten point review of systems completed, otherwise negative except for the chronic pain. She denies shortness of breath or chest pain. PHYSICAL EXAMINATION: GENERAL: Kasey is a 62 year old female. VITAL SIGNS: Heart rate in the 70s, blood pressure 97/64, respiratory rate 16 somewhere to 20s, oximetry is 98%. HEENT: Pupils are equal. Sclerae anicteric. NECK: Supple. She talks incomplete sentences, but answers questions. LUNGS: Clear. HEART: Regular rhythm. S1 and S2 are normal. I do not hear murmur. ABDOMEN: Soft and nontender. EXTREMITIES: Without clubbing, cyanosis or edema. LABORATORY RESULTS: White count 10.7, hemoglobin 10.2, platelets 187. Sodium 138, potassium 3.4, chloride 98, bicarb 31, BUN 24, creatinine 0.85. IMPRESSION: Status post removal of infected pain pump and hardware. She growing Klebsiella out of her abdominal wound. Infectious Disease has been consulted. She appears to be clinically stable from a critical care standpoint. TIME SPENT: A 70-minute consult, with greater than 50% of time was spent in the unit coordinating care. Job ID: [id number] MTDD
--- NOTE | 2018-05-13 03:11 | CON ---
DATE OF CONSULTATION: 05/12/2018 REASON FOR CONSULTATION: Morphine intrathecal pump infection. HISTORY OF PRESENT ILLNESS: A 62-year-old with history of prior CVA and prior multiple back procedures, which have failed and have left her with chronic pain syndrome managed with intrathecal administration of morphine from a pump for the past 2 years. The patient has had a at least 2 pumps inserted through revision surgery by Dr. Lantigua in the past and now, she presents with inflammatory process, which failed conservative management. She underwent removal of the device that had been offered. The operative report was reviewed and the initial approach occurred in the paralumbar area and an incision was made. Eventually, fluoroscopy was used to identify the tubing, incision was made over the and carried down to the skin. The catheter was dissected from the bone anchor site and anchor device was dissected free and catheter was removed. There was a little bit of leakage, which was stated as possible CSF. The site was sutured after that and the incision was opened around the pump, which was partially opened already and purulent material evacuated as well. The whole device and catheter removed. The current incision was closed with yevgeniy and the infected wound was excised with capsule and subcutaneous tissue. A wound VAC was placed at the site. Ms. Bonilla was transferred to the ICU, because of concern with the prior symptoms from lack of opioids. Right now, she is feeling okay. She denies any headaches. No visual symptoms. She has quite a bit of back pain. No dyspnea or chest pain. No abdominal pain except for the surgical site and she is voiding in the bedside commode. PAST MEDICAL HISTORY: Includes multiple lumbar procedures for management of recurrent back pain, prior osteomyelitis, cervical stenosis, CVA wound, spinal cord stimulator placement and subsequent placement of an intrathecal pump delivering opioids, history of appendectomy, hysterectomy, ulnar nerve transposition, bladder suspension, rectocele and cystocele repair and PFO closure. SOCIAL HISTORY: . No smoking or alcoholic beverage use. FAMILY HISTORY: Noncontributory. ALLERGIES: ASPIRIN, SULFA DRUGS, VANCOMYCIN, CEFTAZIDIME, BUTORPHANOL. CURRENT MEDICATIONS: 1. Bumex. 2. Keflex. 3. Plavix. 4. Benadryl. 5. Lovenox. 6. Levofloxacin. 7. Ondansetron. 8. Promethazine. PHYSICAL EXAMINATION: VITAL SIGNS: T-max 98.6, BP 125/61, pulse 80, respirations 16, O2 saturation 96%. SKIN: Shows the surgical site with exposed fat tissue. There is no erythema along the incision is noticeable. Now, she has a negative pressure dressing in place and peripheral IV access. NECK: Neck is supple. No lymphadenopathy. HEENT: Ocular movements conjugate. Oral cavity is normal. LUNGS: Symmetric and clear breath sounds. HEART: S1, S2. Regular rate without murmurs. No S3 or S4. ABDOMEN: Soft. Mild tenderness at the operative site where the wound VAC is placed. GENITOURINARY: Perineal area is normal. EXTREMITIES: There is no joint inflammatory activity. Pulses 1+ in dorsalis pedis. She is able to move extremities with some limitations. NEUROLOGIC: Cognitive function appears to be intact. LABORATORY DATA: White cell count 10.7, hemoglobin 10.3 platelets 187. Sodium 138, creatinine 0.85. Normal liver profile. Albumin 3.3. Vancomycin trough 17. Microbiology with Klebsiella pneumoniae, which has a broad susceptibility profile. This is from 2 different samples submitted. The Gram stain from the sample showed no organisms seen, few Klebsiella pneumonia identified. ASSESSMENT: Chronic low back pain, multiple procedures, eventually transition to intrathecal pump which had to be removed, because of Klebsiella pneumoniae infection. The organism is a broadly susceptible organism and the infection seems to be limited to the pocket site where the device was placed. There is no evidence of meningitis at this point in time. It is very unlikely that she will develop any such complication, in view of the length the infected device from the intrathecal access point. Discontinue Keflex, continue quinolone for 10-14 days of therapy or even less. Once there is fresh granulation tissue, the antimicrobial therapy would be able to be discontinued. It does not appear that blood cultures were submitted, but she did not have clinical findings that would suggest bacteremia. Job ID: [id number]
[2018-05-13] MEDS: diphenhydrAMINE 50 MG/ML VIAL IVP SCH ×2 (03:33→13:08)
[2018-05-13] MEDS: Polyethylene Glycol 3350 17 GM Packet PO SCH (08:36)
[2018-05-13] MEDS: Clopidogrel Bisulfate 75 MG TAB PO SCH (08:39)
[2018-05-13] MEDS: Potassium Chloride 10 MEQ TAB PO SCH ×2 (08:39→20:41)
[2018-05-13] MEDS: Enoxaparin Sodium 40 MG/0.4 ML SYRINGE SC SCH (08:39)
[2018-05-13] MEDS: Bumetanide 1 MG TAB PO SCH (08:39)
[2018-05-13] MEDS: Hydrocortisone 1% Cream 30 GM TUBE TOP SCH ×4 (08:39→20:46)
[2018-05-13] MEDS ORDERED: Ibuprofen 600 MG TAB PO PRN (09:41)
[2018-05-13] MEDS ORDERED: traMADol HCl 50 MG TAB PO PRN ×2 (09:41)
[2018-05-13] MEDS ORDERED: Acetaminophen 500 MG TAB PO PRN (09:41)
--- NOTE | 2018-05-13 10:05 | PRG ---
DATE OF SERVICE: 05/13/2018 SUBJECTIVE: Ms. Bonilla is doing well today in the ICU. She is on a Dilaudid ARTIFICIAL CANDY MAKER and a fentanyl patch. Her blood pressure has been stable. Vital signs normal. There has been no signs of withdrawal from her Dilaudid pain pump. It is speculated that there must be something wrong with her pump as she had flu-like symptoms quite a few weeks ago, that now in hindsight were felt possibly to be withdrawal symptoms. She has handled removal of her pain pump without problems indicating that she was not receiving the Dilaudid and clonidine as expected. At this point, she remains stable. We will plan transfer out of the ICU. We have stopped her vancomycin. This has resulted in blisters and skin rashes. Dr. Gama has seen her and agrees with Levaquin IV. There are no indications of spinal fluid infection as the pain pump infection was localized to her abdominal wall. Blood cultures negative today. At this point, I expect that she will be able to be discharged home in the next day or two with pain management per Dr. Brown. She will have outpatient wound VAC application management at [facility] 2 to 3 times a week. She can have a new pain pump in her left lower quadrant in the future. We will arrange with Dr. Brown. Job ID: [id number]
[2018-05-13] MEDS ORDERED: HYDROcodone/Acetaminophen 10/325 mg Tablet PO PRN (10:34)
--- NOTE | 2018-05-13 12:09 | CON ---
DATE OF CONSULTATION: CONSULTING PROVIDER: Bonifacio Brown MD HISTORY OF PRESENT ILLNESS: This patient is a 62-year-old female with a history of chronic lumbar pain syndrome, who had a pain pump placed previously and sounds like she has had these replaced from time to time. She presented with evidence of drainage from cellulitic pain pump site, failing treatment with outpatient oral antibiotics. She underwent removal of the pump successfully. The wound was left open and wound VAC has been placed. Cultures grew Klebsiella, which is highly sensitive. Dr. Gama has been consulted. The patient was initially started on vancomycin, which unfortunately led to a significant medication reaction with dermolysis and dermatitis over much of the patient's midsection. She has some bullae forming and she has been receiving topical hydrocortisone lotion for that. There was also some concern regarding the possibility of a significant withdrawal from the opioids and clonidine that the patient was receiving, however, that has not occurred. The patient reported flu-like symptoms through the month of January and much of February, and it is felt at this point that her pain pump may have actually been nonfunctioning during that time and no symptoms represented some withdrawal. Today, the patient is generally doing well other than the pain associated with dermatitis. She has been eating and drinking well, has been able to get up to the bedside commode and have normal bowel movements. PAST MEDICAL HISTORY: Chronic lumbar pain, osteomyelitis, cervical stenosis, and cerebellar stroke. PAST SURGICAL HISTORY: Multiple lumbar surgeries, appendectomy, hysterectomy, ulnar nerve transplantation, bladder suspension, repair of rectocele, cystocele, multiple pain pump replacements with spinal cord stimulator and percutaneous closure of PFO. FAMILY HISTORY: Heart disease. SOCIAL HISTORY: The patient is a nonsmoker, nondrinker, and nondrug user. . She is a full code and her daughter is with her today. ALLERGIES: ASPIRIN, SULFA, BUTORPHANOL, CEFTAZIDIME, AND VANCOMYCIN. HOME MEDICATIONS: 1. Milk of magnesia. 2. Loratadine. 3. Plavix. 4. Bumex. 5. Rosuvastatin. 6. Zantac. 7. Potassium. 8. Aspirin. 9. Sertraline. 10. Currently, the patient is receiving levofloxacin and hydrocortisone cream as well as opioid pain management. PHYSICAL EXAMINATION: VITAL SIGNS: Temperature is 98.1, pulse 61, BP 138/60, O2 saturations 93% on room air. GENERAL APPEARANCE: Age-appropriate female, in no distress. She is awake, alert, oriented, pleasant, and cooperative. HEENT: PERRL. No OP lesions. NECK: Supple and symmetric without lymphadenopathy, JVD, or bruit. HEART: Regular rate and rhythm with no murmurs, gallops, or rubs. LUNGS: Clear to auscultation bilaterally. ABDOMEN: Soft, nontender, and nondistended. Positive bowel sounds. There is a wound VAC in the right lower quadrant. She has dermatitis noted there. EXTREMITIES: No cyanosis, clubbing, or edema. SKIN: Exam reveals erythema with multiple areas of bulla over the mid trunk and upper thigh area extending to the back. NEUROLOGIC: The patient appears to be fully intact. Cranial nerves are normal. No focal deficits. PSYCH: The patient has normal affect and behavior. LABORATORY DATA: Only recent labs with culture growing Klebsiella. Her potassium on 05/10 was 3.4, glucose was 132. IMPRESSION AND PLAN: 1. Right lower abdominal pain pump pocket infection status post removal, growing Klebsiella. Dr. Gama' consult noted. The patient is on Levaquin, which she will remain on briefly. She appears to have good healing. Continue with wound VAC. 2. Concern for withdrawal. The patient has not had any evidence of that. She seems to be doing quite well overall. Continue with the current plan followed by Surgery and Pain Management. 3. Erythroderma reaction to vancomycin. She is receiving topical hydrocortisone. She is also routinely on antihistamines and Pepcid. Not much to add at this point, given that we need to avoid any systemic steroids because of the active infection. It appears as though she did possibly receive one dose of prednisone p.o. DISPOSITION: The patient will be transferred to the floor today. We will continue to follow, although we do not have significant amount to add to the current care of plan. I would be happy to follow with the other treating physicians. Job ID: [id number]
[2018-05-13] MEDS ORDERED: Silver Sulfadiazine 1% Cream 50 GM JAR TOP PRN (18:09)
[2018-05-13] MEDS: HYDROcodone/Acetaminophen 10/325 mg Tablet PO PRN (20:40)
[2018-05-13] MEDS: Aspirin 81 mg Enteric Coated Tablet PO SCH (20:40)
[2018-05-13] MEDS: Famotidine 20 MG TAB PO SCH (20:40)
[2018-05-13] MEDS: Loratadine 10 MG TAB PO SCH (20:41)
[2018-05-13] MEDS: Rosuvastatin 20 MG TAB PO SCH (20:42)
[2018-05-13] MEDS: Nystatin Powder 15 GM BOT TOP SCH (20:47)
[2018-05-13] MEDS: Milk Of Magnesia 30 ML UDCUP PO SCH (22:02)
[2018-05-14] MEDS: HYDROcodone/Acetaminophen 10/325 mg Tablet PO PRN ×3 (01:25→07:20)
[2018-05-14] MEDS: diphenhydrAMINE 50 MG/ML VIAL IVP SCH ×2 (01:26→12:26)
[2018-05-14 05:31] LABS: #Eosinphils 0.3 thou/uL (0.0-0.7); #Lymphocytes 1.2 thou/uL (1.20-3.40); #Monocytes 0.4 thou/uL (0.11-0.59); #Neutrophils 4.7 thou/uL (1.40-6.50); %Basophils 0.4 % (0.0-1.0); %Eosinophils 4.1 % (0.0-10.0); %Lymphocytes 17.8 % (21.0-51.0); %Monocytes 5.9 % (0.0-10.0); %Neutrophils 71.8 % (42.0-75.0); Hemoglobin 10.3 g/dL (12.0-16.0); Mean Corpuscular HGB CONC 31.5 g/dL (32.0-36.0); Mean Corpuscular Hemoglobin 26.8 pg (27.0-31.0); Mean Corpuscular Volume 85.3 fL (78.0-98.0); Mean Platelet Volume 7.4 fL (7.4-10.4); Platelet Count 219 thou/uL (130-400); RBC Distribution Width 15.8 % (11.5-14.5); Red Blood Cell (RBC) Count 3.82 mill/uL (4.20-5.40); White Blood Cell (WBC) Count 6.5 thou/uL (4.8-10.8)
[2018-05-14 05:50] LABS: Anion Gap 13 mmol/L (10-20); BUN (Urea Nitrogen) 21 mg/dL (9.8-20.1); Calc. Creatinine Clearance 122 mL/min (70-130); Calcium 8.8 mg/dL (7.8-10.44); Carbon Dioxide 27 mmol/L (23-31); Chloride 105 mmol/L (98-107); Estimated GFR-MDRD 77; Glucose 98 mg/dL (80-115); Sodium 141 mmol/L (136-145)
[2018-05-14] MEDS: HYDROmorphone 10 mg/100 ml CADD IVPB PRN (06:22)
[2018-05-14] MEDS: Hydrocortisone 1% Cream 30 GM TUBE TOP SCH (08:23)
[2018-05-14] MEDS: Nystatin Powder 15 GM BOT TOP SCH (08:23)
[2018-05-14] MEDS: Polyethylene Glycol 3350 17 GM Packet PO SCH (08:23)
[2018-05-14] MEDS: Clopidogrel Bisulfate 75 MG TAB PO SCH (08:25)
[2018-05-14] MEDS: Bumetanide 1 MG TAB PO SCH (08:25)
[2018-05-14] MEDS: Potassium Chloride 10 MEQ TAB PO SCH (08:25)
[2018-05-14 08:31] VITALS: TEMP 97.8
[2018-05-14] MEDS ORDERED: Enoxaparin Sodium 40 MG/0.4 ML SYRINGE SC SCH (09:00)
[2018-05-14] MEDS ORDERED: tiZANidine HCl 4 MG TAB PO PRN (10:37)
[2018-05-14] MEDS ORDERED: Bacitracin Zinc 1 Packet TOP PRN (10:38)
--- NOTE | 2018-05-14 10:39 | PRG ---
DATE OF SERVICE: 05/14/2018 SUBJECTIVE: Ms. Bonilla is doing well today. She is still requiring a HADOOP INFRASTRUCTURE ARCHITECT for pain control. She has a fentanyl patch. HADOOP INFRASTRUCTURE ARCHITECT can be discontinued per plans with Dr. Brown for pain management. The patient's wound VAC should be approved today and she could go home today from all other aspects pending pain management issues. Today, her wound VAC was removed. Her wound looks good. There is healthy granulation. There is no evidence of cellulitis. Per Dr. Gama' note, we can stop her IV Levaquin, change her to p.o., and probably just treat her for 7 days and discontinue this. OBJECTIVE: LUNGS: Clear to auscultation. CARDIAC: Regular rate and rhythm without murmur or gallop. ABDOMEN: Soft, nontender, obese, tolerating her diet. ASSESSMENT AND PLAN: She was transferred out of ICU yesterday, but there are no beds available for the transfer. She is floor status, but in ICU to a bed becomes available. Hemoglobin 10, white count 6.5. Basic metabolic profile normal. Continue diabetic diet. Anticipate discharge home later today or tomorrow pending pain management plans for pain control. Job ID: [id number]
--- NOTE | 2018-05-14 11:42 | DIS ---
DATE OF ADMISSION: 05/11/2018 DATE OF DISCHARGE: 05/14/2018 HOSPITAL COURSE: Kasey Bonilla is a patient well known to me. I performed a breast biopsy for her in the late . She has had multiple back surgeries and has had chronic back pain, has had a pain pump placed. It has been replaced on several occasions last time, last year. It is managed by Dr. Brown. It is a Dilaudid, clonidine pain pump. The patient had developed an infection in the last few weeks and been through several courses of oral antibiotics, improving the cellulitis, but she developed a sinus tract with purulent drainage, presented to the emergency room, from where she was admitted. The patient was seen in the emergency room on 05/10/2018, had a CAT scan demonstrating these changes and was admitted. Dr. Aroldo Rivera is her primary care physician. She was taken to the operating room on 05/11/2018, where the pain pump was removed and wound VAC applied. The intrathecal catheter was also removed in its entirety. The anchoring device and the catheter were removed from the intrathecal space. The infection was limited due to the right lower quadrant abdominal wall cavity and did not involve the catheter or intrathecal. Cerebrospinal fluid was clear. Postoperatively, the patient was monitored on ICU for withdrawals from Dilaudid and clonidine. This was overseen by Dr. Brown. She had allotted pain pump. The patient did not demonstrate any signs of withdrawal leading caregivers to believe that the pain pump was malfunctioning. She was not getting all the pain medications she was intended to give through the pain pump. The patient recalls several weeks ago having flu-like symptoms that now in retrospect was felt to be withdrawal symptoms due to a malfunctioning pain pump. At this point, the patient is being discharged home to follow up with Dr. Brown of Pain Management. She has an outpatient wound VAC arrangements for outpatient wound care [facility] three times a week. I will see her wound in 2 to 3 weeks there. She will be sent home with Tylenol daily as needed for pain, aspirin daily, Plavix 75 mg a day, Benadryl p.r.n., Pepcid 40 mg a day, Duragesic patch 75 mcg q.[address] Brown, [place] 10/325 as needed for pain prescribed by Dr. Stonecipher, hydrocortisone cream to rash due to vancomycin, which was discontinued. She has a history of vancomycin pruritus and redness, and this was discontinued. Her cultures grew out Klebsiella. She is sent home on Levaquin 500 mg a day for 7 days. She can take ibuprofen p.r.n. pain [id number]. Resume her home medications, Claritin p.r.n., MiraLAX milk of magnesia. Job ID: [id number]
[2018-05-14] MEDS ORDERED: fentaNYL 100 mcg/hour Patch TD SCH (12:00)
== END 2018-05-14 13:37 | disposition home or self-care (01) | DRG 29 ==
LOC: ERS 18:49 → SURG B 21:01 → CCU 05-11 18:13 → OBSVTOIN 05-11 20:20
PROVIDERS: ADMIT Specialist; ATTEND Specialist
PROC: 00PU03Z Removal of Infusion Device from Spinal Canal, Open Approach (ICD-10-PCS; principal; 2018-05-11)
DX: T85.738A Infection and inflammatory reaction due to other nervous system device, implant or graft, initial encounter (principal); L03.311 Cellulitis of abdominal wall; T81.49XA Infection following a procedure, other surgical site, initial encounter; Z68.41 Body mass index [BMI] 40.0-44.9, adult; M54.9 Dorsalgia, unspecified; G89.29 Other chronic pain; B96.1 Klebsiella pneumoniae [K. pneumoniae] as the cause of diseases classified elsewhere; T36.8X5A Adverse effect of other systemic antibiotics, initial encounter; L53.9 Erythematous condition, unspecified; E66.9 Obesity, unspecified; E78.00 Pure hypercholesterolemia, unspecified; Z86.73 Personal history of transient ischemic attack (TIA), and cerebral infarction without residual deficits
CPT/HCPCS: 36415; 74177; 76000; 80048; 80053; 80202; 83605; 85025; 87070; 87077; 87186; 87205; 90471; 90670; 93005; 93010; 99214; G0009; G0463; J0670; J0696; J1170; J1200; J1650; J1956; J2001; J2250; J2405; J2704; J3010; J3370; J3490; J7050; Q0163; Q9966

== ENCOUNTER 2018-05-16 12:46 | Outpatient (CLI) | payer MEDICARE ==
[~2018-05-16 12:46] MED LIST changes: -ISOVUE-370 76%-LOCM 1 ML ONE; +Lidocaine 4% Topical Sol 50 ML BOT ONE; +Sodium Chloride 0.9% 15 ML NEB ONE
== END 2018-05-16 12:47 | disposition home or self-care (01) ==
LOC: WCC 12:46
PROVIDERS: ATTEND Family Medicine
DX: L03.311 Cellulitis of abdominal wall (principal)
CPT/HCPCS: 97605; A4218

== ENCOUNTER 2018-05-20 13:06 | Outpatient (CLI) | payer MEDICARE ==
[2018-05-20] MEDS ORDERED: Lidocaine 4% Topical Sol 50 ML BOT ONE (18:00)
[2018-05-20] MEDS ORDERED: Sodium Chloride 0.9% 15 ML NEB ONE (18:00)
== END 2018-05-20 13:07 | disposition home or self-care (01) ==
LOC: WCC 13:06
PROVIDERS: ATTEND Family Medicine
DX: T81.89XD Other complications of procedures, not elsewhere classified, subsequent encounter (principal)
CPT/HCPCS: 97605; A4218

== ENCOUNTER 2018-05-23 13:21 | Outpatient (CLI) | payer MEDICARE ==
[2018-05-23] MEDS ORDERED: Lidocaine 4% Topical Sol 50 ML BOT ONE (21:26)
[2018-05-23] MEDS ORDERED: Sodium Chloride 0.9% 15 ML NEB ONE (21:26)
--- NOTE | 2018-05-24 00:46 | OP ---
DATE OF PROCEDURE: 05/23/2018 PREOPERATIVE DIAGNOSIS: Open wound in the abdomen from removal of a pain pump. PROCEDURE: The patient was seen in the [facility] today. Her wound VAC was removed and her right lower quadrant wound looked healthy without infection. Wound VAC was in place, it was removed. The paraspinal and lower back incisions were well healed. Incision over the iliac crest laterally was well healed. [place] in place. The patient is doing well. We will review her wound again in 2 to 3 weeks. Wound VAC will be continued. Her is a nurse and will remove her yevgeniy in the next [address] Steri-Strips. Supplies given. Job ID: [id number]
== END 2018-05-23 13:22 | disposition home or self-care (01) ==
LOC: WCC 13:21
PROVIDERS: ATTEND Family Medicine
DX: T81.89XD Other complications of procedures, not elsewhere classified, subsequent encounter (principal)
CPT/HCPCS: 97605; A4218

== ENCOUNTER 2018-05-27 12:52 | Outpatient (CLI) | payer MEDICARE ==
[2018-05-27] MEDS ORDERED: Lidocaine 4% Topical Sol 50 ML BOT ONE (17:27)
[2018-05-27] MEDS ORDERED: Sodium Chloride 0.9% 15 ML NEB ONE (17:27)
== END 2018-05-27 12:53 | disposition home or self-care (01) ==
LOC: WCC 12:52
PROVIDERS: ATTEND Family Medicine
DX: T81.89XD Other complications of procedures, not elsewhere classified, subsequent encounter (principal)
CPT/HCPCS: 97605; A4218

== ENCOUNTER 2018-05-30 07:42 | Outpatient (CLI) | payer MEDICARE ==
[2018-05-30] MEDS ORDERED: Lidocaine 4% Topical Sol 50 ML BOT ONE (14:55)
[2018-05-30] MEDS ORDERED: Sodium Chloride 0.9% 15 ML NEB ONE (14:55)
== END 2018-05-30 07:43 | disposition home or self-care (01) ==
LOC: WCC 07:42
PROVIDERS: ATTEND Family Medicine
DX: T81.89XD Other complications of procedures, not elsewhere classified, subsequent encounter (principal)
CPT/HCPCS: 97605; A4218

== ENCOUNTER 2018-06-02 13:31 | Outpatient (CLI) | payer MEDICARE ==
[2018-06-02] MEDS ORDERED: Sodium Chloride 0.9% 15 ML NEB ONE (14:59)
[2018-06-02] MEDS ORDERED: Lidocaine 4% Topical Sol 50 ML BOT ONE (14:59)
--- NOTE | 2018-06-02 22:18 | HP ---
HISTORY OF PRESENT ILLNESS: Ms. Kasey Bonilla is a very pleasant 62-year-old, who presents to the Wound Center for evaluation of a wound of the right abdomen subsequent to removal of a pain pump. The patient underwent the preceding procedure on 05/11/[address] Aroldo Gamble. Negative pressure therapy was initiated intraoperatively and upon discharge from [facility], the patient was referred to the Wound Center for assistance with dressing changes of the wound VAC. The patient was discharged to home on Levaquin 500 mg p.o. daily x7 days. PAST MEDICAL HISTORY: 1. History of patent foramen ovale. 2. Cerebellar CVA. 3. Gastroesophageal reflux disease. PAST SURGICAL HISTORY: 1. RODRIGUEZ/BSO, appendectomy, and adhesiolysis. 2. Bladder suspension and treatment of rectocele. 3. Needle localization, left breast biopsy. 4. Breast reduction. 5. Right carpal tunnel. 6. Left carpal tunnel. 7. Back surgery in 1995. 8. Surgery for infectious process subsequent to back surgery in 1996. 9. Multiple surgical procedures for placement and removal of pain control device from 1997 to early . 10. Multiple surgical procedures for placement and removal of pain pump with the last surgical procedure on 05/11/2018. 11. Left ulnar nerve decompression. 12. Percutaneous patent foramen ovale repair. MEDICATIONS: 1. Plavix. 2. Aspirin. 3. Sertraline. 4. Fentanyl patch. 5. [place]. 6. Crestor. 7. Loratadine. ALLERGIES: SULFA AND VANCOMYCIN. SOCIAL HISTORY: Negative for tobacco or EtOH use. FAMILY HISTORY: Significant for coronary artery disease. The patient states that her father, mother, brother and sister were all diagnosed with coronary artery disease. PHYSICAL EXAMINATION: VITAL SIGNS: Temperature 98.5, pulse 75, respirations 18, blood pressure 139/73. GENERAL: A 62-year-old female lying on stretcher in examination room, in no acute distress. HEENT: Normocephalic, atraumatic. NECK: No nuchal rigidity. CHEST: Clear to auscultation. CV: Regular rate and rhythm. ABDOMEN: Soft. A wound at the right abdomen is present which measures approximately 0.5 x 7.0 cm. Granulation tissue is present within the wound margins. No purulent drainage is associated with the wound. No erythema of the skin surrounding the wound is present. No maceration of the skin of the periwound is noted. EXTREMITIES: No clubbing or cyanosis. ASSESSMENT AND PLAN: 1. Wound of right abdomen as described above. Negative pressure therapy will be continued with dressing changes of the wound VAC here in the Wound Center. The patient will be seen by Dr. Gamble next week. I will see Ms. Bonilla again in 2 weeks. No antibiotics will be prescribed today based upon the appearance of the wound. 2. History of patent foramen ovale. 3. Cerebellar cerebrovascular accident. 4. Gastroesophageal reflux disease. Job ID: [id number]
== END 2018-06-02 13:32 | disposition home or self-care (01) ==
LOC: WCC 13:31
PROVIDERS: ATTEND Family Medicine
DX: T81.89XD Other complications of procedures, not elsewhere classified, subsequent encounter (principal)

== ENCOUNTER 2018-06-05 13:13 | Outpatient (CLI) | payer MEDICARE ==
[2018-06-05] MEDS ORDERED: Lidocaine 4% Topical Sol 50 ML BOT ONE (16:22)
[2018-06-05] MEDS ORDERED: Sodium Chloride 0.9% 15 ML NEB ONE (16:22)
== END 2018-06-05 13:14 | disposition home or self-care (01) ==
LOC: WCC 13:13
PROVIDERS: ATTEND Family Medicine
DX: T81.89XD Other complications of procedures, not elsewhere classified, subsequent encounter (principal)
CPT/HCPCS: 97605; A4218

== ENCOUNTER 2018-06-13 13:53 | Outpatient (CLI) | payer MEDICARE ==
[2018-06-13] MEDS ORDERED: Sodium Chloride 0.9% 15 ML NEB ONE (18:18)
== END 2018-06-13 13:54 | disposition home or self-care (01) ==
LOC: WCC 13:53
PROVIDERS: ATTEND Family Medicine
DX: T81.89XD Other complications of procedures, not elsewhere classified, subsequent encounter (principal)
CPT/HCPCS: 97605; A4218

== ENCOUNTER 2018-06-25 11:25 | Outpatient (CLI) | payer MEDICARE ==
--- NOTE | 2018-06-25 17:59 | PRG ---
DATE OF SERVICE: 06/25/2018 HISTORY: Ms. Kasey Bonilla is a very pleasant 62-year-old, accompanied by her , who presents to the Wound Center for evaluation of a wound of the right abdomen subsequent to removal of a pain pump. The patient underwent the preceding procedure on 05/11/[address] Aroldo Gamble. Negative pressure therapy was initiated intraoperatively, and upon discharge from [facility], the patient was referred to the Wound Center for assistance with dressing changes of the wound VAC. The patient was discharged to home on Levaquin 500 mg p.o. daily x7 days. Since the patient's visit on 06/02/2018, negative pressure therapy has been discontinued, and the patient is receiving dressing changes of 1/4-inch plain packing followed by 4x4's, secured with tape. PHYSICAL EXAMINATION: VITAL SIGNS: Temperature 97.9, pulse 71, respirations 19, and blood pressure 120/58. ABDOMEN: Soft. A wound of the right abdomen is present which measures approximately 0.2 x 1.8 cm. The dimensions of the wound at the time of the patient's visit on 06/02/2018 were approximately 0.5 x 7.0 cm. Granulation tissue is present within the wound margins. No purulent drainage is associated with the wound. No erythema of the skin surrounding the wound is present. No maceration of the skin of the periwound is noted. ASSESSMENT AND PLAN: 1. Wound of right abdomen as described above. Dressing changes of 1/4-inch plain packing will be continued followed by 4x4's, secured with tape. The patient and her have been reassured that the wound appears to be healing without complications or any signs of infection. I will see Ms. Bonilla again in 2 weeks if the wound is still present at this time. 2. History of patent foramen ovale. 3. Cerebellar cerebrovascular accident. 4. Gastroesophageal reflux disease. Job ID: [id number]
[2018-06-25] MEDS ORDERED: Sodium Chloride 0.9% 15 ML NEB ONE (18:00)
== END 2018-06-25 11:26 | disposition home or self-care (01) ==
LOC: WCC 11:25
PROVIDERS: ATTEND Family Medicine
DX: S31.109D Unspecified open wound of abdominal wall, unspecified quadrant without penetration into peritoneal cavity, subsequent encounter (principal); K21.9 Gastro-esophageal reflux disease without esophagitis; I63.9 Cerebral infarction, unspecified; Z87.74 Personal history of (corrected) congenital malformations of heart and circulatory system
CPT/HCPCS: 97602; A4218

== ENCOUNTER 2018-09-26 16:10 | Outpatient (CLI) | payer MEDICARE, OTHER ==
[~2018-09-26 16:10] MED LIST changes: +Gadobenate Dimeglumine 529 MG/1 ML (20ML VIAL) ONE; +Gadobenate Dimeglumine 529 MG/ML (10ML VIAL) ONE; -Lidocaine 4% Topical Sol 50 ML BOT ONE; -Sodium Chloride 0.9% 15 ML NEB ONE
[2018-09-26 17:22] LABS: Estimated GFR-MDRD - POC Greater than 90
--- NOTE | 2018-09-26 23:52 | MRI ---
MRI LUMBAR SPINE WITH AND WITHOUT CONTRAST: DATE: 09/26/18 HISTORY: 63-year-old female with low back pain, lumbar spinal stenosis, and lumbar radiculopathy. COMPARISON: 07/20/2003. TECHNIQUE: Multiple sequences obtained in axial and sagittal planes, pre and post IV injection of gadolinium-bas ed contrast agent: 18 mL Multihance. FINDINGS: For the purposes of this report, it will be assumed that there are five lumbar type vertebrae. Again noted are the wide decompressive laminectomy defects from L3 through L5-S1. Again noted are the metal lic hardware, including bilateral pedicle screws at L3, left pedicle screw at L4, right pedicle screw at L5, and anterior obliquely oriented screws at the L5 vertebral body and S1 vertebral body. Again noted are the interbody bone grafts at L3-4, L4-5, and L5-S1 with successful ankylosis between the en dplates. Cauda equina is arranged in a symmetrical, normal distribution throughout the thecal sac. Co nus medullaris terminates at approximately T12-L1. Again noted is the complete loss of lordosis with straightening of the lumbar curvature due to the surgical fusion. Extensive postsurgical scar tissue in the soft tissues dorsal to the lumbar spine. Again demonstrated is the chronic retrospinal fluid c ollection posterior to the thecal sac from approximately L3-4 through the upper sacrum, with multiple septations. This measures approximately 9.5 cm craniocaudal x 0.8 cm AP x 4.5 cm transverse, and is unchanged. The spinal canal and thecal sac are generous in caliber throughout all levels of the laminectomy (L3 and below). At L2-3, there has been interval worsening of now moderate ligamentum flavum thickening and degenerat homer facet hypertrophy, which, together with the mild diffuse disc bulge, results in moderate central spinal canal stenosis. Mild bilateral neural foraminal stenosis at this level. Greater degree of disc space narrowing, now moderate, compared to prior study. At L1-2, similar ligamentum flavum thickening and mild diffuse disc bulge results in moderate central spinal canal stenosis. No significant neural foraminal stenosis. Mild to moderate disc space narrowi ng. At T12-L1, moderate to severe ligamentum flavum thickening encroaches upon posterior aspect of the sp inal canal. Mild central spinal canal stenosis. Disc space maintained. Mild disc bulge. IMPRESSION: 1. Old postsurgical changes including extensive decompressive laminectomies, plus posterior and anterior metallic hardware, from L3 through L5-S1, with capacious caliber of spinal canal and thecal sac throughout those levels. 2. Chronic retrospinal fluid collection, unchanged since 2003, perhaps chronic pseudomeningocele . 3. Interval progression of degenerative disc disease and facet osteoarthrosis at two of the leve ls superior to the fusion, resulting in moderate central spinal canal stenosis at L1-2 and L2-3. JN R POS: CET
== END 2018-09-26 16:11 | disposition home or self-care (01) ==
LOC: SCSMRI 16:10
PROVIDERS: ATTEND Anesthesiology Pain Medicine
DX: M96.1 Postlaminectomy syndrome, not elsewhere classified (principal); M48.062 Spinal stenosis, lumbar region with neurogenic claudication; M51.36 Other intervertebral disc degeneration, lumbar region; M47.816 Spondylosis without myelopathy or radiculopathy, lumbar region
CPT/HCPCS: 72158; 82565

== ENCOUNTER 2019-01-12 07:08 | Outpatient (CLI) | payer MEDICARE, OTHER ==
[2019-01-12 14:05] LABS: #Eosinphils 0.3 thou/uL (0.0-0.7); #Lymphocytes 1.6 thou/uL (1.20-3.40); #Monocytes 0.3 thou/uL (0.11-0.59); #Neutrophils 3.2 thou/uL (1.40-6.50); %Basophils 0.6 % (0.0-1.0); %Lymphocytes 29.3 % (21.0-51.0); %Monocytes 4.7 % (0.0-10.0); %Neutrophils 60.3 % (42.0-75.0); Hemoglobin 13.8 g/dL (12.0-16.0); Mean Corpuscular HGB CONC 33.1 g/dL (32.0-36.0); Mean Corpuscular Hemoglobin 28.7 pg (27.0-31.0); Mean Corpuscular Volume 86.6 fL (78.0-98.0); Mean Platelet Volume 7.5 fL (7.4-10.4); Platelet Count 163 thou/uL (130-400); RBC Distribution Width 13.9 % (11.5-14.5); Red Blood Cell (RBC) Count 4.82 mill/uL (4.20-5.40); White Blood Cell (WBC) Count 5.3 thou/uL (4.8-10.8)
[2019-01-12 14:31] LABS: Anion Gap 12 mmol/L (10-20); BUN (Urea Nitrogen) 22 mg/dL (9.8-20.1); Calc. Creatinine Clearance 0 mL/min (70-130); Calcium 9.6 mg/dL (7.8-10.44); Carbon Dioxide 24 mmol/L (23-31); Chloride 107 mmol/L (98-107); Estimated GFR-MDRD 81; Glucose 81 mg/dL (80-115); Sodium 139 mmol/L (136-145)
== END 2019-01-12 07:09 | disposition home or self-care (01) ==
LOC: LABBT 07:08
PROVIDERS: ATTEND Orthopaedic Surgery
DX: Z01.818 Encounter for other preprocedural examination (principal); M19.011 Primary osteoarthritis, right shoulder
CPT/HCPCS: 80048; 85025; 93005; 93010

== ENCOUNTER 2019-01-12 10:30 | Inpatient (IN) | payer MEDICARE, OTHER ==
[2019-01-12 10:50] VITALS: BMI 31.8
[2019-01-16] MEDS ORDERED: Tranexamic Acid 1,000 MG/10 ML VIAL ONE (06:18)
[2019-01-16] MEDS ORDERED: Sodium Chloride 0.9% 100 ML ONE (06:18)
[2019-01-16] MEDS ORDERED: Fentanyl 100 MCG/2 ML VIAL ONE ×3 (06:39→08:05)
[2019-01-16] MEDS ORDERED: Midazolam HCl 2 mg/2 ml Vial ONE (06:39)
[2019-01-16] MEDS ORDERED: traMADol HCl 50 MG TAB PO PRN (07:00)
[2019-01-16] MEDS ORDERED: HYDROcodone/Acetaminophen 10/325 mg Tablet PO PRN (07:00)
[2019-01-16] MEDS ORDERED: Gentamicin Sulfate 120 MG in Premix Bag 1 BAG IVPB SCH (07:00)
[2019-01-16] MEDS ORDERED: fentaNYL 75 mcg/hour Patch TD SCH (08:00)
[2019-01-16] MEDS ORDERED: Promethazine HCl 25 MG/ML VIAL IM PRN ×2 (09:04→10:16)
[2019-01-16] MEDS ORDERED: Promethazine HCl 25 MG/ML VIAL SLOW IVP PRN (09:04)
[2019-01-16] MEDS ORDERED: Ondansetron HCl/PF 4 MG/2 ML Vial IVP PRN (09:04)
[2019-01-16] MEDS ORDERED: Lidocaine 1% (PF) 30 ML VIAL ONE (09:57)
[2019-01-16] MEDS ORDERED: Acetaminophen 325 MG TAB PO PRN (10:15)
[2019-01-16] MEDS ORDERED: oxyCODONE/Acetaminophen 5 mg/325 mg Tablet PO PRN ×2 (10:16)
[2019-01-16] MEDS ORDERED: Ondansetron PF 4 MG/2 ML Vial IVP PRN (10:16)
[2019-01-16] MEDS ORDERED: Ropivacaine 0.2% 550 ML 550 ML NERVE BLCK SCH (10:16)
[2019-01-16] MEDS ORDERED: Zolpidem Tartrate 5 MG TAB PO PRN (10:16)
[2019-01-16] MEDS ORDERED: Fentanyl 100 MCG/2 ML VIAL IV PRN (10:17)
--- NOTE | 2019-01-16 10:59 | OP ---
DATE OF PROCEDURE: 01/16/2019 PREOPERATIVE DIAGNOSES: 1. 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 2. Biceps tendinitis. POSTOPERATIVE DIAGNOSES: 1. 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 2. Biceps tendinitis. PROCEDURE: 1. Right total shoulder arthroplasty. 2. Right biceps tenodesis. IMPRESSION: Tornier M40 Cortiloc glenoid, a Flex 3C stem, and a 43 x 16 high offset head with the index #7. POULTRY HATCHERY MAN: Harjit Lilly PA-C BLOOD LOSS: About 200. SPECIMEN: None. DRAINS: None. COMPLICATIONS: None. DESCRIPTION OF PROCEDURE: After appropriate consent was obtained, the patient was taken to the operating room where general anesthesia was induced. The patient was placed in a beach chair position. Right arm was prepped and draped in the usual sterile fashion. Oblique incision was made in the deltopectoral interval. Cephalic vein was identified and preserved. Dissection was carried down to the conjoint tendon which was retracted medially. The subscapularis was taken down. The biceps tendon was in poor condition. It was taken down off the superior glenoid tubercle and tenodesed to the pectoralis tendon. Excess tendon was removed. The shoulder was then easily dislocated. I opened the humerus with a T handle and then cut a 20 mm retroversion superior cut. The subscapularis had been previously tagged. I used a subscapularis to follow this down to the anterior glenoid and a Bankart retractor was placed anteriorly, and drill was placed posteriorly. I drilled a center hole in the glenoid and reamed with a 1-step reamer. Irrigation was performed. The base plate was deployed without difficulty. Screws were inserted in the usual technique with good compression and fixation. Glenosphere was deployed without difficulty and the screw was tightened. Attention was turned back to the humerus which was opened with a T handle, and after using the acetabular reamer, I then also used a metaphyseal reamer. The appropriate size stem was trialed and polyethylene was trialed until the implants were determined as above. I did drill holes through the humerus, and a cottony Dacron suture was placed around the prosthesis through bone to facilitate repair of the subscapularis. Irrigation was performed. Permanent implants were placed. Shoulder was reduced. The subscapularis was repaired back to bone using the cottony Dacron suture. Irrigation performed again. The deltopectoral interval was tacked shut with 0 Vicryl, subcutaneous tissue was closed with 2-0 Vicryl, skin was closed with yevgeniy, and sterile dressing was applied. Job ID: [id number]
[2019-01-16] MEDS ORDERED: Glycopyrrolate 0.2 MG/ML 5 ML SYRINGE ONE (11:07)
[2019-01-16] MEDS ORDERED: Ketorolac Tromethamine 30 MG/ML VIAL ONE (11:07)
[2019-01-16] MEDS ORDERED: Rocuronium Bromide 10 MG/ML (10ML VIAL) ONE (11:07)
[2019-01-16] MEDS ORDERED: PROPOFOL 200 MG/20 ML VIAL ONE (11:07)
[2019-01-16] MEDS ORDERED: Ondansetron PF 4 MG/2 ML Vial ONE (11:07)
[2019-01-16] MEDS ORDERED: ePHEDrine/0.9% NaCl/PF SYRINGE 50 mg/10 ml ONE (11:07)
[2019-01-16] MEDS ORDERED: Lidocaine 1% PF 5 ML VIAL ONE (11:07)
[2019-01-16] MEDS ORDERED: Ropivacaine 0.5% HCl/PF (150 MG/30 ML VIAL) ONE (11:07)
[2019-01-16] MEDS ORDERED: Ropivacaine 0.2% HCl/PF (40 MG/20 ML VIAL) ONE (11:07)
[2019-01-16] MEDS ORDERED: Ketorolac Tromethamine 30 MG/ML VIAL IVP SCH (12:00)
[2019-01-16] MEDS: Ketorolac Tromethamine 30 MG/ML VIAL IVP SCH ×2 (13:16→17:51)
[2019-01-16] MEDS: CEFAZOLIN 2 GM in Premix Bag 1 BAG IVPB SCH ×2 (13:17→22:10)
[2019-01-16] MEDS: Lactated Ringer's 1,000 ML IV SCH ×2 (13:18→22:10)
[2019-01-16] MEDS: Loratadine 10 MG TAB PO SCH (20:39)
[2019-01-16] MEDS: Famotidine 20 MG TAB PO SCH (20:40)
[2019-01-16] MEDS: Rosuvastatin 20 MG TAB PO SCH (20:40)
[2019-01-16] MEDS: Aspirin 81 mg Enteric Coated Tablet PO SCH (20:41)
[2019-01-17] MEDS: Ketorolac Tromethamine 30 MG/ML VIAL IVP SCH ×5 (00:16→23:34)
[2019-01-17] MEDS ORDERED: fentaNYL 75 mcg/hour Patch TD SCH (09:00)
[2019-01-17] MEDS: Lactated Ringer's 1,000 ML IV SCH (12:35)
[2019-01-17] MEDS: Loratadine 10 MG TAB PO SCH (19:35)
[2019-01-17] MEDS: Aspirin 81 mg Enteric Coated Tablet PO SCH (19:35)
[2019-01-17] MEDS: Rosuvastatin 20 MG TAB PO SCH (19:35)
[2019-01-17] MEDS: Famotidine 20 MG TAB PO SCH (19:36)
[2019-01-17] MEDS ORDERED: Cepastat Lozenges 1 LOZ PO PRN (22:32)
[2019-01-17] MEDS: HYDROcodone/Acetaminophen 10/325 mg Tablet PO PRN (23:34)
[2019-01-18] MEDS: Lactated Ringer's 1,000 ML IV SCH (00:44)
[2019-01-18] MEDS: HYDROcodone/Acetaminophen 10/325 mg Tablet PO PRN (03:39)
[2019-01-18] MEDS: Ketorolac Tromethamine 30 MG/ML VIAL IVP SCH (06:42)
[2019-01-18 11:49] VITALS: TEMP 98.2
[2019-01-18 13:28] VITALS: BP 91/56
--- NOTE | 2019-01-19 13:54 | DIS ---
DATE OF ADMISSION: 01/16/2019 DATE OF DISCHARGE: 01/18/2019 This is Rita Deluca PA-C dictating a report for Charan Beavers MD. PREOPERATIVE DIAGNOSES: 1. 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 2. Biceps tendinitis. POSTOPERATIVE DIAGNOSES: 1. 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 2. Biceps tendinitis. PROCEDURES PERFORMED: 1. Right total shoulder arthroplasty. 2. Right biceps tenodesis. BRIEF HOSPITAL COURSE: This is a 63-year-old female who was indicated for the above-mentioned procedure. She did well in the operative suite and then postoperatively, she was admitted to [place] [address] [facility] where she received postoperative analgesics and antibiotics. She was comfortable in a sling. On postoperative day #1 as well as the day of surgery, she did get up and attempt to walk with a rhea-walker secondary to recent right upper extremity surgery and longstanding history of chronic back pain. She normally ambulates with an upright rolling walker, but it was felt that physical therapy would try the rhea-walker first. She did not do well with this. Later that day on postoperative day #1, her brought up her upright walker from home, and she attempted this with physical therapy, allowing her surgical extremity to guide the walker without bearing weight on it. She did very well with this. On postoperative day #2, she was discharged to home. DISCHARGE DISPOSITION: Home. DISCHARGE CONDITION: Stable. DISCHARGE INSTRUCTIONS: The patient will follow up Dr. Beavers as scheduled. She will continue to wear her sling and remove it for gentle range of motion. She may use her upright walker as discussed in the hospital. DISCHARGE MEDICATIONS: See MAR. Job ID: [id number]
== END 2019-01-18 12:50 | disposition home or self-care (01) | DRG 483 ==
LOC: SJJU 01-16 05:44 → SURG B 01-16 12:34
PROVIDERS: ADMIT Orthopaedic Surgery; ATTEND Orthopaedic Surgery
PROC: 0RRJ0JZ Replacement of Right Shoulder Joint with Synthetic Substitute, Open Approach (ICD-10-PCS; principal; 2019-01-16)
PROC: 0LS30ZZ Reposition Right Upper Arm Tendon, Open Approach (ICD-10-PCS; 2019-01-16)
DX: M19.011 Primary osteoarthritis, right shoulder (principal); M75.101 Unspecified rotator cuff tear or rupture of right shoulder, not specified as traumatic; M75.21 Bicipital tendinitis, right shoulder; Z86.73 Personal history of transient ischemic attack (TIA), and cerebral infarction without residual deficits; Z90.49 Acquired absence of other specified parts of digestive tract; Z90.710 Acquired absence of both cervix and uterus; Z88.1 Allergy status to other antibiotic agents; Z88.2 Allergy status to sulfonamides; Z88.8 Allergy status to other drugs, medicaments and biological substances
CPT/HCPCS: A4306; C1713; J0690; J1885; J2001; J2250; J2405; J2704; J2795; J3010; J3490

== ENCOUNTER 2019-09-07 13:00 | Outpatient (CLI) | payer MEDICARE, OTHER ==
--- NOTE | 2019-09-07 13:58 | MRI ---
MR CERVICAL SPINE WITHOUT CONTRAST INDICATION: 64-year-old female with right cervical radiculopathy TECHNIQUE: Multiplanar multisequence MR images were obtained of the cervical spine without contrast. COMPARISON: October 20, 2017 MR cervical spine FINDINGS: Posterior fossa: Within normal limits. Bone marrow signal intensity: Normal Spinal alignment: There is straightening of the normal cervical lordosis. Craniocervical junction: Normal appearing. Prevertebral and perivertebral soft tissues: Visualized soft tissues appear within normal limits. Vertebral levels: C2-C3: No appreciable central canal or neuroforaminal narrowing. C3-4: There is stable severe right neural foraminal narrowing due to facet hypertrophy and uncoverteb ral hypertrophy. No appreciable central canal narrowing is evident. C4-5: There is uncovertebral hypertrophy and a broad-based disc bulge inducing stable [id number] te central canal narrowing mild ventral effacement of the spinal cord. Uncovertebral hypertrophy and facet degenerative change induces severe bilateral neural foraminal narrowing, left greater than right which is stable. C5-C6: There is a broad-based disc osteophyte complex with uncovertebral hypertrophy and facet joint degenerative change inducing moderate to severe bilateral neural foraminal narrowing and mild central canal narrowing which is stable. C6-C7:, There is a broad-based disc bulge with mild effacement of ventral subarachnoid space without definite cord compression. This is stable to the prior exam. C7-T1: No appreciable central canal or neuroforaminal narrowing. IMPRESSION: 1. Stable cervical spondylosis. 2. Stable severe right neural foraminal narrowing at C3-4 due to uncovertebral hypertrophy and facet joint degenerative change. 3. Stable severe bilateral neural foraminal narrowing with mild/moderate central canal narrowing at C 4-5. 4. Stable moderate to severe bilateral neural foraminal narrowing at C5-6 with mild central canal maryam rowing. 5. Stable mild central canal narrowing at C6-7.
== END 2019-09-07 13:01 | disposition home or self-care (01) ==
LOC: TBSIIMAG 13:00
PROVIDERS: ATTEND Orthopaedic Surgery
DX: M47.22 Other spondylosis with radiculopathy, cervical region (principal); M48.02 Spinal stenosis, cervical region; M89.38 Hypertrophy of bone, other site
CPT/HCPCS: 72141

== ENCOUNTER 2020-03-04 07:39 | Outpatient (CLI) | payer MEDICARE, OTHER ==
[2020-03-04 20:23] LABS: SARS-CoV-2 PCR by NAA Not Detected (NotDetected)
== END 2020-03-04 07:40 | disposition home or self-care (01) ==
LOC: LABBT 07:39
PROVIDERS: ATTEND Neurological Surgery
DX: Z01.812 Encounter for preprocedural laboratory examination (principal); G56.21 Lesion of ulnar nerve, right upper limb; Z20.822 Contact with and (suspected) exposure to COVID-19
CPT/HCPCS: U0003; U0005; 87635

== ENCOUNTER 2020-03-09 06:39 | Day surgery (SDC) | payer MEDICARE, OTHER ==
[2020-03-07 12:42] VITALS: BMI 37.9
[2020-03-09] MEDS ORDERED: Bupivacaine PF 0.5% 30 ML VIAL ONE (06:44)
[2020-03-09] MEDS ORDERED: EPINEPHrine 1 MG/ML AMP ONE (06:44)
[2020-03-09] MEDS ORDERED: Propofol 500 MG/50 ML VIAL ONE (06:50)
[2020-03-09] MEDS ORDERED: Midazolam HCl 2 mg/2 ml Vial ONE (07:03)
[2020-03-09] MEDS ORDERED: Midazolam HCl 5 mg/5 ml Vial ONE (07:13)
[2020-03-09] MEDS ORDERED: Fentanyl 100 MCG/2 ML VIAL ONE (07:13)
[2020-03-09] MEDS ORDERED: Ketamine 50 MG/ML (10ML VIAL) ONE (07:13)
--- NOTE | 2020-03-09 08:21 | OP ---
DATE OF PROCEDURE: 03/09/2020 BEZEL CUTTER: Taco Dupree PA-C INDICATION: Prevent neurologic decline. DIAGNOSIS: Right ulnar neuropathy. PROCEDURE PERFORMED: Right ulnar nerve decompression. ANESTHESIA: TIVA and local. DESCRIPTION OF PROCEDURE: The patient was brought into the operating room and placed under anesthesia. Her right arm was prepped and draped up to the level of the axilla. After prepping and draping and after an appropriate preoperative pause, a linear incision was planned over the ulnar groove in line with the ulnar nerve on the right side at the level of the elbow. The area was also infiltrated with local anesthetic. An incision was then created and the soft tissues were swept away from midline. The ulnar groove was identified as was the ulnar nerve. An adhesiolysis was performed around the ulnar nerve until it was well decompressed. After completing the decompression, the wound was irrigated. Hemostasis was maintained throughout. The wound was then closed in a single layer technique. The procedure came to an end without complication. Job ID: [id number]
[2020-03-09] MEDS ORDERED: Dexamethasone 20 MG/5 ML VIAL ONE (09:27)
[2020-03-09] MEDS ORDERED: Ketorolac Tromethamine 30 MG/ML VIAL ONE (09:27)
[2020-03-09] MEDS ORDERED: Lidocaine 1% PF 5 ML VIAL ONE (09:27)
== END 2020-03-09 09:00 | disposition home or self-care (01) ==
LOC: SDC 06:39
PROVIDERS: ATTEND Neurological Surgery
PROC: 01N40ZZ Release Ulnar Nerve, Open Approach (ICD-10-PCS; principal; 2020-03-09)
DX: G56.21 Lesion of ulnar nerve, right upper limb (principal); Z79.82 Long term (current) use of aspirin; Z79.899 Other long term (current) drug therapy; Z88.1 Allergy status to other antibiotic agents; Z88.2 Allergy status to sulfonamides
CPT/HCPCS: J0171; J0690; J1100; J1885; J2250; J2704; J3010; S0020

== ENCOUNTER 2020-05-04 13:40 | Outpatient (CLI) | payer MEDICARE, OTHER ==
[2020-05-05 13:09] LABS: SARS-CoV-2 PCR by NAA Not Detected (NotDetected)
== END 2020-05-04 13:41 | disposition home or self-care (01) ==
LOC: LABBT 13:40
PROVIDERS: ATTEND Neurological Surgery
DX: M54.12 Radiculopathy, cervical region (principal); Z20.822 Contact with and (suspected) exposure to COVID-19
CPT/HCPCS: U0003; U0005; 87635

== ENCOUNTER 2020-05-09 05:54 | Observation (INO) | payer MEDICARE, OTHER ==
[2020-05-06 10:02] VITALS: BMI 36.5
[2020-05-09] MEDS ORDERED: Thrombin 5000 UNITS/5 ML VIAL ONE (06:09)
[2020-05-09] MEDS ORDERED: Fentanyl 100 MCG/2 ML VIAL ONE ×3 (06:30→09:56)
[2020-05-09] MEDS ORDERED: HYDROmorphone 0.5 MG/0.5 ML SYRINGE ONE (06:31)
[2020-05-09] MEDS ORDERED: Midazolam HCl 2 mg/2 ml Vial ONE ×2 (06:33→09:21)
[2020-05-09] MEDS ORDERED: Ondansetron PF 4 MG/2 ML Vial ONE (07:10)
[2020-05-09] MEDS ORDERED: Rocuronium Bromide 10 MG/ML (10ML VIAL) ONE (07:10)
[2020-05-09] MEDS ORDERED: Ketorolac Tromethamine 30 MG/ML VIAL ONE (07:10)
[2020-05-09] MEDS ORDERED: PHENYLEPHRINE-NS 100 MCG/ML 10 ML SYRINGE ONE (07:10)
[2020-05-09] MEDS ORDERED: Dexamethasone 20 MG/5 ML VIAL ONE (07:10)
[2020-05-09] MEDS ORDERED: Lidocaine 1% PF 5 ML VIAL ONE (07:10)
[2020-05-09] MEDS ORDERED: PROPOFOL 200 MG/20 ML VIAL ONE (07:10)
[2020-05-09] MEDS ORDERED: SUGAMMADEX SODIUM 200 MG/2 ML VIAL ONE (08:32)
[2020-05-09] MEDS ORDERED: HYDROmorphone 2 MG/ML VIAL SLOW IVP PRN (08:36)
[2020-05-09] MEDS ORDERED: Ondansetron HCl/PF 4 MG/2 ML Vial IVP PRN (08:36)
[2020-05-09] MEDS ORDERED: Meperidine HCl/PF 25 MG/ML VIAL SLOW IVP PRN (08:36)
[2020-05-09] MEDS ORDERED: Promethazine HCl 25 MG/ML VIAL SLOW IVP PRN (08:36)
[2020-05-09] MEDS ORDERED: HYDROmorphone 2 MG/ML VIAL ONE (09:04)
[2020-05-09] MEDS ORDERED: Cyclobenzaprine 10 MG TAB ONE (09:15)
[2020-05-09] MEDS ORDERED: Morphine 2 MG/ML VIAL ONE ×4 (10:28→11:48)
[2020-05-09] MEDS ORDERED: oxyCODONE/Acetaminophen 5 mg/325 mg Tablet PO PRN (11:32)
[2020-05-09] MEDS ORDERED: Diazepam 5 MG TAB PO PRN (11:34)
[2020-05-09] MEDS ORDERED: Ondansetron PF 4 MG/2 ML Vial IVP PRN ×2 (12:53→14:48)
[2020-05-09] MEDS ORDERED: Morphine 4 MG/ML VIAL SLOW IVP PRN (13:00)
[2020-05-09] MEDS ORDERED: Cyclobenzaprine 10 MG TAB PO PRN (13:00)
[2020-05-09] MEDS ORDERED: Mag-Al 1200 mg/1200 mg/30 ML UDCUP PO PRN (13:00)
[2020-05-09] MEDS ORDERED: Acetaminophen 650 MG Suppository PR PRN (13:00)
[2020-05-09] MEDS ORDERED: Morphine 2 MG/ML VIAL SLOW IVP PRN (13:00)
[2020-05-09] MEDS ORDERED: Bisacodyl 10 MG SUPP PR PRN (13:00)
[2020-05-09] MEDS ORDERED: HYDROcodone/Acetaminophen 7.5/325 mg Tablet PO PRN ×2 (13:00)
[2020-05-09] MEDS ORDERED: Acetaminophen 325 MG TAB PO PRN (13:00)
[2020-05-09] MEDS ORDERED: diphenhydrAMINE 25 MG CAP PO PRN ×2 (13:00→14:48)
[2020-05-09] MEDS ORDERED: diphenhydrAMINE 50 MG/ML VIAL IVP PRN ×2 (13:00→14:48)
[2020-05-09] MEDS ORDERED: fentaNYL 75 mcg/hour Patch TD SCH (14:00)
[2020-05-09] MEDS: Sodium Chloride 0.9% 1,000 ML IV SCH (14:14)
[2020-05-09] MEDS: CEFAZOLIN 2 GM in Premix Bag 1 BAG IVPB SCH ×2 (14:45→23:50)
[2020-05-09] MEDS ORDERED: HYDROmorphone 10 mg/100 ml CADD IVPB PRN (14:48)
[2020-05-09] MEDS ORDERED: Naloxone HCl 0.4 mg/ml Vial IV PRN (14:48)
[2020-05-09] MEDS ORDERED: diphenhydrAMINE 50 MG/ML VIAL IM PRN (14:48)
[2020-05-09] MEDS ORDERED: Promethazine HCl 25 MG/ML VIAL IM PRN (14:48)
[2020-05-09] MEDS ORDERED: Zolpidem Tartrate 5 MG TAB PO PRN (14:48)
[2020-05-09] MEDS ORDERED: Communication Order-Pharmacy FS SCH (15:00)
[2020-05-09] MEDS ORDERED: Loratadine 10 MG TAB PO SCH (21:00)
[2020-05-09] MEDS ORDERED: Rosuvastatin 20 MG TAB PO SCH (21:00)
[2020-05-09] MEDS ORDERED: [UNRECOGNIZED DRUG - OTHER] PO SCH (21:00)
[2020-05-09] MEDS ORDERED: Famotidine 20 MG TAB PO SCH (21:00)
[2020-05-09] MEDS ORDERED: GLUCOS PO SCH (21:00)
[2020-05-09] MEDS ORDERED: Milk Of Magnesia 30 ML UDCUP PO SCH (21:00)
[2020-05-10] MEDS: Sodium Chloride 0.9% 1,000 ML IV SCH ×3 (03:43→15:40)
[2020-05-10] MEDS ORDERED: Acetaminophen 500 MG TAB PO SCH (12:00)
[2020-05-10 15:29] VITALS: BP 129/71; TEMP 98.3
[2020-05-12] MEDS ORDERED: fentaNYL 75 mcg/hour Patch TD SCH (15:00)
== END 2020-05-10 18:00 | disposition home or self-care (01) ==
LOC: SDC 05:54 → SJJU 11:10
PROVIDERS: ADMIT Neurological Surgery; ATTEND Neurological Surgery
PROC: 0RG20A0 Fusion of 2 or more Cervical Vertebral Joints with Interbody Fusion Device, Anterior Approach, Anterior Column, Open Approach (ICD-10-PCS; principal; 2020-05-09)
PROC: 0RG2070 Fusion of 2 or more Cervical Vertebral Joints with Autologous Tissue Substitute, Anterior Approach, Anterior Column, Open Approach (ICD-10-PCS; 2020-05-09)
PROC: 0RT30ZZ Resection of Cervical Vertebral Disc, Open Approach (ICD-10-PCS; 2020-05-09)
DX: M54.12 Radiculopathy, cervical region (principal); M48.02 Spinal stenosis, cervical region; Z79.82 Long term (current) use of aspirin; Z79.899 Other long term (current) drug therapy; Z88.1 Allergy status to other antibiotic agents; Z88.2 Allergy status to sulfonamides; Z88.6 Allergy status to analgesic agent
CPT/HCPCS: 20930; 20936; 22551; 22552; 22845; 22853 ×2; 76000; 96374; C1713 ×4; C1776; G0378 ×2; J2270; J0690; J1100; J1170; J1885; J2250; J2405; J2704; J3010

== ENCOUNTER 2020-11-03 14:40 | Outpatient (CLI) | payer MEDICARE, OTHER ==
[2020-11-03 15:57] LABS: #Eosinphils 0.3 10x3/uL (0.0-0.5); #Monocytes 0.3 10x3/uL (0.0-1.1); #Neutrophils 2.8 10x3/uL (1.5-8.4); %Basophils 0.4 % (0.0-2.0); %Eosinophils 4.9 % (0.0-6.0); %Lymphocytes 34.6 % (18.0-47.0); %Monocytes 5.5 % (0.0-10.0); %Neutrophils 54.2 % (40.0-75.0); Hemoglobin 12.9 g/dL (12.0-15.5); Mean Corpuscular HGB CONC 31.6 g/dL (32.0-36.0); Mean Corpuscular Hemoglobin 27.4 pg (27.0-33.0); Mean Corpuscular Volume 86.6 fl (81.6-98.3); Mean Platelet Volume 9.8 fl (7.4-10.4); Platelet Count 139 10x3/uL (150-450); RBC Distribution Width 14.6 % (11.5-14.5); Red Blood Cell (RBC) Count 4.71 10x6/uL (3.90-5.03); White Blood Cell (WBC) Count 5.1 10x3/uL (3.5-10.5)
[2020-11-03 16:57] LABS: Bilirubin Neg (Negative); Blood, Urine Negative (Negative); Clarity Cloudy (Clear); Glucose, Urine (Dipstick) Normal (Negative); Ketone, Urine Negative (Negative); Leukocyte 25 (Negative); Nitrite Negative (Negative); Protein, Urine (Dipstick) 15 mg/dl (Neg-Trace); Specific Gravity, Urine 1.015 (1.002-1.036); Urobilinogen Normal mg/dL (Less than 2)
[2020-11-03 17:22] LABS: Bacteria/HPF Rare-Few HPF (None Seen); Mucous/LPF 1+ LPF (<2+)
[2020-11-04 09:11] LABS: SARS-CoV-2 PCR by NAA Not Detected (NotDetected)
== END 2020-11-03 14:41 | disposition home or self-care (01) ==
LOC: LABBT 14:40
PROVIDERS: ATTEND Orthopaedic Surgery Hand Surgery
DX: Z01.818 Encounter for other preprocedural examination (principal); M18.12 Unilateral primary osteoarthritis of first carpometacarpal joint, left hand; M24.542 Contracture, left hand; Z20.822 Contact with and (suspected) exposure to COVID-19
CPT/HCPCS: 81001; 85025; 93005; U0003; U0005; 93010

== ENCOUNTER 2020-11-08 05:48 | Day surgery (SDC) | payer MEDICARE, OTHER ==
[2020-11-07 12:35] VITALS: BMI 38.9
[2020-11-08] MEDS ORDERED: Fentanyl 100 MCG/2 ML VIAL ONE ×2 (06:14→06:48)
[2020-11-08] MEDS ORDERED: Bacitracin Zinc Ointment 30 gm TUBE ONE (06:21)
[2020-11-08] MEDS ORDERED: Neomycin-Polymyxin 1 ML AMP ONE (06:21)
[2020-11-08] MEDS ORDERED: Bupivacaine PF 0.5% 30 ML VIAL ONE (06:21)
[2020-11-08] MEDS ORDERED: Midazolam HCl 2 mg/2 ml Vial ONE (06:48)
[2020-11-08] MEDS ORDERED: Dexamethasone 20 MG/5 ML VIAL ONE (07:29)
[2020-11-08] MEDS ORDERED: ePHEDrine 50 MG/ML VIAL ONE (07:29)
[2020-11-08] MEDS ORDERED: Ropivacaine 0.5% HCl/PF (150 MG/30 ML VIAL) ONE (07:29)
[2020-11-08] MEDS ORDERED: Ondansetron PF 4 MG/2 ML Vial ONE (07:29)
[2020-11-08] MEDS ORDERED: Ketorolac Tromethamine 30 MG/ML VIAL ONE (07:29)
[2020-11-08] MEDS ORDERED: PROPOFOL 200 MG/20 ML VIAL ONE (07:29)
[2020-11-08] MEDS ORDERED: Ropivacaine 0.2% 550 ML 550 ML NERVE BLCK SCH (08:15)
[2020-11-08] MEDS ORDERED: traMADol HCl 50 MG TAB PO PRN ×2 (08:15)
[2020-11-08] MEDS ORDERED: HYDROcodone/Acetaminophen 5/325 mg Tablet PO PRN ×2 (08:15)
[2020-11-08] MEDS ORDERED: Promethazine HCl 25 MG/ML VIAL IM PRN (08:15)
[2020-11-08] MEDS ORDERED: Zolpidem Tartrate 5 MG TAB PO PRN (08:15)
[2020-11-08] MEDS ORDERED: Ondansetron PF 4 MG/2 ML Vial IVP PRN (08:15)
[2020-11-08] MEDS ORDERED: HYDROcodone/Acetaminophen 5/325 mg Tablet ONE (12:55)
[2020-11-08] MEDS ORDERED: Ondansetron ODT 4 MG TAB ONE (13:28)
== END 2020-11-08 14:28 | disposition home or self-care (01) ==
LOC: SDC 05:48
PROVIDERS: ATTEND Orthopaedic Surgery Hand Surgery
PROC: 0RGV04Z Fusion of Left Metacarpophalangeal Joint with Internal Fixation Device, Open Approach (ICD-10-PCS; principal; 2020-11-08)
PROC: 0LX60ZZ Transfer Left Lower Arm and Wrist Tendon, Open Approach (ICD-10-PCS; 2020-11-08)
PROC: 0RUT07Z Supplement Left Carpometacarpal Joint with Autologous Tissue Substitute, Open Approach (ICD-10-PCS; 2020-11-08)
PROC: 3E0T3BZ Introduction of Anesthetic Agent into Peripheral Nerves and Plexi, Percutaneous Approach (ICD-10-PCS; 2020-11-08)
DX: M18.0 Bilateral primary osteoarthritis of first carpometacarpal joints (principal); M72.0 Palmar fascial fibromatosis [Dupuytren]; M65.331 Trigger finger, right middle finger; M35.1 Other overlap syndromes; M25.242 Flail joint, left hand; G47.30 Sleep apnea, unspecified; Z86.73 Personal history of transient ischemic attack (TIA), and cerebral infarction without residual deficits; Z79.82 Long term (current) use of aspirin; Z79.899 Other long term (current) drug therapy; Z88.1 Allergy status to other antibiotic agents; Z88.2 Allergy status to sulfonamides; Z88.8 Allergy status to other drugs, medicaments and biological substances; Z98.1 Arthrodesis status
CPT/HCPCS: 25310; 25447; 26516; 64416; 73140; 76000; A4306; J0690; J1100; J1885; J2250; J2405; J2704; J2795; J3010; J3490; Q0162; S0020

== ENCOUNTER 2021-08-31 13:24 | Outpatient (CLI) | payer MEDICARE, OTHER ==
[2021-08-31 14:54] LABS: #Eosinphils 0.2 10x3/uL (0.0-0.5); #Monocytes 0.4 10x3/uL (0.0-1.1); #Neutrophils 3.6 10x3/uL (1.5-8.4); %Basophils 0.3 % (0.0-2.0); %Eosinophils 3.3 % (0.0-6.0); %Lymphocytes 27.3 % (18.0-47.0); %Neutrophils 62.9 % (40.0-75.0); Hemoglobin 13.5 g/dL (12.0-15.5); Mean Corpuscular Hemoglobin 26.8 pg (27.0-33.0); Mean Corpuscular Volume 83.9 fl (81.6-98.3); Mean Platelet Volume 9.9 fl (7.4-10.4); Platelet Count 136 10x3/uL (150-450); RBC Distribution Width 15.6 % (11.5-14.5); Red Blood Cell (RBC) Count 5.03 10x6/uL (3.90-5.03); White Blood Cell (WBC) Count 5.8 10x3/uL (3.5-10.5)
== END 2021-08-31 13:25 | disposition home or self-care (01) ==
LOC: LABBT 13:24
PROVIDERS: ATTEND Orthopaedic Surgery Hand Surgery
DX: Z01.818 Encounter for other preprocedural examination (principal); G56.02 Carpal tunnel syndrome, left upper limb; G56.22 Lesion of ulnar nerve, left upper limb; M72.0 Palmar fascial fibromatosis [Dupuytren]; Z20.822 Contact with and (suspected) exposure to COVID-19
CPT/HCPCS: 85025; 87811; 93005; 93010

== ENCOUNTER 2021-09-05 10:59 | Day surgery (SDC) | payer MEDICARE, OTHER ==
[2021-08-31 18:08] VITALS: BMI 35.4
[~2021-09-05 10:59] MED LIST changes: +Bupivacaine HCl 0.5%/Epinephrine 1:200,000/PF 30 ml Vial ONE; -Gadobenate Dimeglumine 529 MG/1 ML (20ML VIAL) ONE; -Gadobenate Dimeglumine 529 MG/ML (10ML VIAL) ONE
[2021-09-05] MEDS ORDERED: Neomycin-Polymyxin 1 ML AMP ONE (11:51)
[2021-09-05] MEDS ORDERED: Bacitracin Zinc Ointment 30 gm TUBE ONE (11:51)
[2021-09-05] MEDS ORDERED: Bupivacaine PF 0.5% 30 ML VIAL ONE ×2 (11:51→16:17)
[2021-09-05] MEDS ORDERED: Betamet Acet/Betamet Na Ph 30 MG/5 ML VIAL ONE (11:51)
[2021-09-05] MEDS ORDERED: Midazolam HCl 2 mg/2 ml Vial ONE (15:23)
[2021-09-05] MEDS ORDERED: Ketamine 50 MG/ML (10ML VIAL) ONE (15:24)
[2021-09-05] MEDS ORDERED: Dexmedetomidine 200 MCG/2 ML VIAL ONE (15:24)
[2021-09-05] MEDS ORDERED: HYDROmorphone 0.5 MG/0.5 ML SYRINGE ONE (15:24)
[2021-09-05] MEDS ORDERED: fentaNYL Citrate/PF 100 MCG/2 ML SYRINGE ONE ×2 (15:24→18:00)
[2021-09-05] MEDS ORDERED: Famotidine/PF 20 mg/2ml Vial ONE (15:25)
[2021-09-05] MEDS ORDERED: CEFAZOLIN 2 GM VIAL ONE (15:40)
[2021-09-05] MEDS ORDERED: Sodium Chloride 0.9% 100 ML ONE (15:40)
[2021-09-05] MEDS ORDERED: Ketorolac Tromethamine 30 MG/ML VIAL ONE (15:49)
[2021-09-05] MEDS ORDERED: Lidocaine 1% PF 5 ML VIAL ONE (15:49)
[2021-09-05] MEDS ORDERED: Dexamethasone 20 MG/5 ML VIAL ONE (15:49)
[2021-09-05] MEDS ORDERED: ePHEDrine 50 MG/ML VIAL ONE (15:49)
[2021-09-05] MEDS ORDERED: Ondansetron PF 4 MG/2 ML Vial ONE (15:49)
[2021-09-05] MEDS ORDERED: PROPOFOL 200 MG/20 ML VIAL ONE (15:49)
[2021-09-05] MEDS ORDERED: Thrombin 5000 UNITS/5 ML VIAL ONE (18:10)
[2021-09-05] MEDS ORDERED: Fentanyl 100 MCG/2 ML VIAL ONE (20:38)
== END 2021-09-05 22:22 | disposition home or self-care (01) ==
LOC: SDC 10:59
PROVIDERS: ATTEND Orthopaedic Surgery Hand Surgery
PROC: 0JNK0ZZ Release Left Hand Subcutaneous Tissue and Fascia, Open Approach (ICD-10-PCS; principal; 2021-09-05)
PROC: 0LN80ZZ Release Left Hand Tendon, Open Approach (ICD-10-PCS; 2021-09-05)
PROC: 0LN80ZZ Release Left Hand Tendon, Open Approach (ICD-10-PCS; 2021-09-05)
PROC: 01N50ZZ Release Median Nerve, Open Approach (ICD-10-PCS; 2021-09-05)
PROC: 01N40ZZ Release Ulnar Nerve, Open Approach (ICD-10-PCS; 2021-09-05)
PROC: 01N40ZZ Release Ulnar Nerve, Open Approach (ICD-10-PCS; 2021-09-05)
DX: M72.0 Palmar fascial fibromatosis [Dupuytren] (principal); G56.02 Carpal tunnel syndrome, left upper limb; G56.22 Lesion of ulnar nerve, left upper limb; M65.331 Trigger finger, right middle finger; M18.0 Bilateral primary osteoarthritis of first carpometacarpal joints; M35.1 Other overlap syndromes; G47.30 Sleep apnea, unspecified; Z86.73 Personal history of transient ischemic attack (TIA), and cerebral infarction without residual deficits; Z79.82 Long term (current) use of aspirin; Z79.899 Other long term (current) drug therapy; Z88.1 Allergy status to other antibiotic agents; Z88.2 Allergy status to sulfonamides; Z88.8 Allergy status to other drugs, medicaments and biological substances
CPT/HCPCS: 88304; J0690; J0702; J1100; J1170; J1885; J2250; J2405; J2704; J3010; J3490; S0020; S0028

== ENCOUNTER 2022-06-11 15:16 | Outpatient (CLI) | payer MEDICARE, OTHER ==
[2022-06-11 16:50] LABS: #Eosinphils 0.2 10x3/uL (0.0-0.5); #Monocytes 0.4 10x3/uL (0.0-1.1); %Basophils 0.4 % (0.0-2.0); %Eosinophils 3.5 % (0.0-6.0); %Monocytes 7.2 % (0.0-10.0); %Neutrophils 57.7 % (40.0-75.0); Hemoglobin 11.6 g/dL (12.0-15.5); Mean Corpuscular Hemoglobin 26.7 pg (27.0-33.0); Mean Corpuscular Volume 86.2 fl (81.6-98.3); Mean Platelet Volume 9.5 fl (7.4-10.4); Platelet Count 136 10x3/uL (150-450); RBC Distribution Width 15.3 % (11.5-14.5); Red Blood Cell (RBC) Count 4.34 10x6/uL (3.90-5.03); White Blood Cell (WBC) Count 5.2 10x3/uL (3.5-10.5)
[2022-06-11 17:05] LABS: Anion Gap 15 mmol/L (10-20); BUN (Urea Nitrogen) 22 mg/dL (9.8-20.1); Calc. Creatinine Clearance 0 mL/min (70-130); Calcium 8.9 mg/dL (7.8-10.44); Carbon Dioxide 26 mmol/L (23-31); Chloride 107 mmol/L (98-107); Estimated GFR 85; Glucose 107 mg/dL (80-115); Potassium 4.3 mmol/L (3.5-5.1); Sodium 144 mmol/L (136-145)
== END 2022-06-11 15:17 | disposition home or self-care (01) ==
LOC: LABBT 15:16
PROVIDERS: ATTEND Orthopaedic Surgery
DX: Z01.818 Encounter for other preprocedural examination (principal); M75.102 Unspecified rotator cuff tear or rupture of left shoulder, not specified as traumatic
CPT/HCPCS: 80048; 85025; 93005; 93010

== ENCOUNTER 2022-06-14 08:01 | Observation (INO) | payer MEDICARE, OTHER ==
[2022-06-11 15:47] VITALS: BMI 36.5
[2022-06-14] MEDS ORDERED: Midazolam HCl 2 mg/2 ml Vial ONE (08:14)
[2022-06-14] MEDS ORDERED: fentaNYL 50 mcg/mL 1 mL Vial ONE (08:14)
[2022-06-14] MEDS ORDERED: Ropivacaine 0.2% HCl/PF 20 ML ONE (08:14)
[2022-06-14] MEDS ORDERED: Ropivacaine 0.5% HCl/PF (150 MG/30 ML VIAL) ONE (08:14)
[2022-06-14] MEDS ORDERED: Tranexamic Acid 1,000 MG/10 ML VIAL ONE (08:40)
[2022-06-14] MEDS ORDERED: Sodium Chloride 0.9% 100 ML ONE ×2 (08:40→10:02)
[2022-06-14] MEDS ORDERED: HYDROcodone/Acetaminophen 10/325 mg Tablet PO PRN ×3 (09:49→10:00)
[2022-06-14] MEDS ORDERED: Fentanyl 100 MCG/2 ML VIAL SLOW IVP PRN (09:52)
[2022-06-14] MEDS ORDERED: Ropivacaine 0.2% 550 ML 550 ML NERVE BLCK SCH (10:00)
[2022-06-14] MEDS ORDERED: traMADol HCl 50 MG TAB PO PRN ×2 (10:00)
[2022-06-14] MEDS ORDERED: Ondansetron PF 4 MG/2 ML Vial IVP PRN (10:00)
[2022-06-14] MEDS ORDERED: Promethazine HCl 25 MG/ML VIAL IM PRN (10:00)
[2022-06-14] MEDS ORDERED: Zolpidem Tartrate 5 MG TAB PO PRN (10:00)
[2022-06-14] MEDS ORDERED: CEFAZOLIN 2 GM VIAL ONE (10:02)
[2022-06-14] MEDS ORDERED: fentaNYL PF 100 MCG/2 ML SYRINGE ONE (10:26)
[2022-06-14] MEDS ORDERED: NEOSTIGMINE 3 MG/3 ML SYR 3 MG/3 ML SYRINGE ONE (10:29)
[2022-06-14] MEDS ORDERED: PROPOFOL 200 MG/20 ML VIAL ONE (10:29)
[2022-06-14] MEDS ORDERED: Dexamethasone 20 MG/5 ML VIAL ONE (10:29)
[2022-06-14] MEDS ORDERED: Ondansetron PF 4 MG/2 ML Vial ONE (10:29)
[2022-06-14] MEDS ORDERED: Rocuronium Bromide 10 MG/ML (10ML VIAL) ONE (10:29)
[2022-06-14] MEDS ORDERED: Glycopyrrolate 0.2 MG/ML 5 ML SYRINGE ONE (10:29)
[2022-06-14] MEDS ORDERED: Ketorolac Tromethamine 30 MG/ML VIAL ONE (10:29)
[2022-06-14] MEDS ORDERED: PHENYLEPHRINE-NS 100 MCG/ML 10 ML SYRINGE ONE (10:29)
[2022-06-14] MEDS ORDERED: Diazepam 5 MG TAB PO PRN (10:40)
[2022-06-14] MEDS ORDERED: fentaNYL 75 mcg/hour Patch TD SCH (12:00)
[2022-06-14] MEDS ORDERED: Ketorolac Tromethamine 30 MG/ML VIAL IVP SCH (12:00)
[2022-06-14] MEDS: Ketorolac Tromethamine 30 MG/ML VIAL IVP SCH ×2 (13:58→18:03)
[2022-06-14] MEDS: Sodium Chloride 0.9% 1,000 ML IV SCH (13:58)
[2022-06-14] MEDS ORDERED: Dexamethasone 0.5 MG/5 ML UDCUP PO PRN (13:59)
[2022-06-14] MEDS: CEFAZOLIN 2 GM in Sodium Chloride 0.9% 100 ML IVPB SCH (18:04)
[2022-06-14] MEDS ORDERED: Docusate 100 MG CAP PO SCH (21:00)
[2022-06-14] MEDS ORDERED: Aspirin 81 mg Enteric Coated Tablet PO SCH (21:00)
[2022-06-14] MEDS ORDERED: Rosuvastatin 20 MG TAB PO SCH (21:00)
[2022-06-14] MEDS ORDERED: Sertraline 100 MG TAB PO SCH (21:00)
[2022-06-14] MEDS ORDERED: Loratadine 10 MG TAB PO SCH (21:00)
[2022-06-14] MEDS ORDERED: Cholecalciferol 1,000 UNITS (25 MCG) TAB PO SCH (21:00)
[2022-06-15] MEDS: Ketorolac Tromethamine 30 MG/ML VIAL IVP SCH ×3 (00:39→12:00)
[2022-06-15] MEDS: CEFAZOLIN 2 GM in Sodium Chloride 0.9% 100 ML IVPB SCH (01:52)
[2022-06-15] MEDS: Sodium Chloride 0.9% 1,000 ML IV SCH (02:49)
[2022-06-15] MEDS: HYDROcodone/Acetaminophen 10/325 mg Tablet PO PRN ×2 (03:08→06:39)
[2022-06-15] MEDS ORDERED: OxyCODONE IR 30 MG TAB PO PRN (07:06)
[2022-06-15] MEDS ORDERED: Bupivacaine PF 0.5% 30 ML VIAL ONE (08:45)
[2022-06-15] MEDS ORDERED: HYDROmorphone 0.5 MG/0.5 ML SYRINGE ONE (09:03)
[2022-06-15] MEDS ORDERED: Bupivacaine HCl 0.5%/Epinephrine 1:200,000/PF 30 ml Vial ONE (09:30)
[2022-06-15 12:26] VITALS: BP 122/72; TEMP 97.9
== END 2022-06-15 13:34 | disposition home or self-care (01) ==
LOC: SDC 08:01 → SURG A 13:22
PROVIDERS: ADMIT Orthopaedic Surgery; ATTEND Orthopaedic Surgery
PROC: 0RRK0JZ Replacement of Left Shoulder Joint with Synthetic Substitute, Open Approach (ICD-10-PCS; principal; 2022-06-14)
PROC: 0LS40ZZ Reposition Left Upper Arm Tendon, Open Approach (ICD-10-PCS; 2022-06-14)
DX: M19.012 Primary osteoarthritis, left shoulder (principal); M75.22 Bicipital tendinitis, left shoulder; M75.102 Unspecified rotator cuff tear or rupture of left shoulder, not specified as traumatic; G47.30 Sleep apnea, unspecified; K21.9 Gastro-esophageal reflux disease without esophagitis; E78.5 Hyperlipidemia, unspecified; Z86.73 Personal history of transient ischemic attack (TIA), and cerebral infarction without residual deficits; Z79.82 Long term (current) use of aspirin; Z79.899 Other long term (current) drug therapy; Z88.1 Allergy status to other antibiotic agents; Z88.2 Allergy status to sulfonamides; Z88.8 Allergy status to other drugs, medicaments and biological substances; Z98.1 Arthrodesis status; Z96.611 Presence of right artificial shoulder joint
CPT/HCPCS: 23430; 23472; 97116; A4306; C1713 ×2; C1776; C1889; J3010; J1100; J1170; J1885; J2250; J2405; J2704; J2795; J3490; S0020

== ENCOUNTER 2023-07-23 11:00 | Outpatient (CLI) | payer OTHER | END 2023-07-23 11:01 | disposition home or self-care (01) | LOC: DTY/OP 11:00 | PROVIDERS: ATTEND Specialist | DX: E66.01 Morbid (severe) obesity due to excess calories (principal) | CPT/HCPCS: 97802 ==

== ENCOUNTER 2023-08-13 08:58 | Outpatient (CLI) | payer MEDICARE, OTHER ==
[2023-08-13 10:34] LABS: ALT (SGPT) 22 U/L (8-55); AST (SGOT) 29 U/L (5-34); Alkaline Phosphatase 77 U/L (40-110); Anion Gap 14 mmol/L (10-20); BUN (Urea Nitrogen) 29 mg/dL (9.8-20.1); Bilirubin, Total 0.4 mg/dL (0.2-1.2); Calc. Creatinine Clearance 0 mL/min (70-130); Calcium 9.5 mg/dL (7.8-10.44); Carbon Dioxide 23 mmol/L (23-31); Chloride 107 mmol/L (98-107); Estimated GFR 80; Glucose 95 mg/dL (80-115); Sodium 140 mmol/L (136-145)
[2023-08-13 10:37] LABS: #Basophils 0.02 10x3/uL (0.0-0.2); #Eosinphils 0.24 10x3/uL (0.0-0.5); #Neutrophils 3.51 10x3/uL (1.5-8.4); %Basophils 0.3 % (0.0-2.0); %Eosinophils 3.9 % (0.0-6.0); %Lymphocytes 32.4 % (18.0-47.0); %Monocytes 6.5 % (0.0-10.0); %Neutrophils 56.7 % (40.0-75.0); Hematocrit 39.8 % (34.9-44.5); Hemoglobin 12.8 g/dL (12.0-15.5); Mean Corpuscular HGB CONC 32.2 g/dL (32.0-36.0); Mean Corpuscular Hemoglobin 27.6 pg (27.0-33.0); Mean Corpuscular Volume 85.8 fL (81.6-98.3); Mean Platelet Volume 9.9 fL (7.4-10.4); Platelet Count 128 10x3/uL (150-450); RBC Distribution Width 16.5 % (11.5-14.5); Red Blood Cell (RBC) Count 4.64 10x6/uL (3.90-5.03); White Blood Cell (WBC) Count 6.2 10x3/uL (3.5-10.5)
[2023-08-13 14:10] LABS: Hemoglobin A1c 5.7 % (4.0-6.0)
== END 2023-08-13 08:59 | disposition home or self-care (01) ==
LOC: LABBT 08:58
PROVIDERS: ATTEND Specialist
DX: Z01.812 Encounter for preprocedural laboratory examination (principal); E66.01 Morbid (severe) obesity due to excess calories
CPT/HCPCS: 80053; 83036; 85025

== ENCOUNTER 2023-08-13 09:30 | Inpatient (IN) | payer MEDICARE, OTHER ==
[2023-08-19] MEDS ORDERED: fentaNYL 50 mcg/mL 1 mL Vial ONE ×4 (11:57→20:45)
[2023-08-19] MEDS ORDERED: Midazolam HCl 2 mg/2 ml Vial ONE ×2 (11:57→18:48)
[2023-08-19] MEDS ORDERED: Bupivacaine 0.25% HCL 30 ML VIAL ONE ×2 (11:57→14:23)
[2023-08-19] MEDS ORDERED: Heparin 5,000 UNITS/ML VIAL ONE (12:05)
[2023-08-19] MEDS ORDERED: CEFAZOLIN 2 GM VIAL ONE (12:06)
[2023-08-19] MEDS ORDERED: Ketorolac Tromethamine 30 MG (1 mL) VIAL ONE (12:06)
[2023-08-19] MEDS ORDERED: Sodium Chloride 0.9% 100 ML ONE (12:06)
[2023-08-19] MEDS ORDERED: Ondansetron PF 4 MG/2 ML Vial ONE ×2 (14:20→18:49)
[2023-08-19] MEDS ORDERED: fentaNYL PF 100 MCG/2 ML SYRINGE ONE ×2 (14:20→17:16)
[2023-08-19] MEDS ORDERED: Rocuronium Bromide 10 MG/ML (10ML VIAL) ONE ×2 (14:20→16:45)
[2023-08-19] MEDS ORDERED: Dexamethasone 4 mg/ml Vial ONE (14:20)
[2023-08-19] MEDS ORDERED: Lidocaine 1% PF 5 ML VIAL ONE (14:20)
[2023-08-19] MEDS ORDERED: SUGAMMADEX SODIUM 200 MG/2 ML VIAL ONE ×2 (14:21→17:17)
[2023-08-19] MEDS ORDERED: EPINEPHrine 1 MG/ML VIAL ONE (14:23)
[2023-08-19] MEDS ORDERED: Lidocaine 1% (PF) 30 ML VIAL ONE (14:24)
[2023-08-19] MEDS ORDERED: Phenylephrine 40 MG/NS 250 ML 250 ML ONE (14:27)
[2023-08-19] MEDS ORDERED: PROPOFOL 200 MG/20 ML VIAL ONE (14:47)
[2023-08-19] MEDS ORDERED: Lidocaine 1% MPF 2 ML VIAL ONE (14:51)
[2023-08-19] MEDS ORDERED: Glycopyrrolate 0.2 MG/ML 5 ML SYRINGE ONE ×2 (15:27→18:49)
[2023-08-19] MEDS ORDERED: ePHEDrine Sulfate 50 MG/10 ML VIAL ONE (15:53)
[2023-08-19] MEDS ORDERED: PHENYLEPHRINE-NS 100 MCG/ML 10 ML SYRINGE ONE (15:55)
[2023-08-19] MEDS ORDERED: Ipratropium/Albuterol 3 ML NEB NEB PRN (16:34)
[2023-08-19] MEDS ORDERED: Glucagon 1 MG/ML KIT IM PRN (16:34)
[2023-08-19] MEDS ORDERED: hydrALAZINE 20 MG/ML VIAL SLOW IVP PRN (16:34)
[2023-08-19] MEDS ORDERED: Dextrose 5% in Water 1,000 ML IV PRN (16:34)
[2023-08-19] MEDS ORDERED: Promethazine HCl 25 MG/ML VIAL IM PRN ×3 (16:34→20:37)
[2023-08-19] MEDS ORDERED: Dextrose 50% Abboject 50 ML SYRINGE SLOW IVP PRN (16:34)
[2023-08-19] MEDS ORDERED: diphenhydrAMINE 50 MG/ML VIAL IVP PRN ×2 (16:34→20:37)
[2023-08-19] MEDS ORDERED: Ondansetron PF 4 MG/2 ML Vial IVP PRN ×2 (16:34→20:37)
[2023-08-19] MEDS ORDERED: Indocyanine Green 25 MG/10 ML VIAL ONE ×2 (17:28→18:22)
[2023-08-19] MEDS ORDERED: CEFAZOLIN 1 GM VIAL ONE (18:40)
[2023-08-19] MEDS ORDERED: Ketamine In 0.9 % NaCl 50 MG/5 ML SYRINGE ONE (18:48)
[2023-08-19] MEDS ORDERED: Ondansetron HCl/PF 4 MG/2 ML Vial IVP PRN (20:05)
[2023-08-19] MEDS ORDERED: diphenhydrAMINE 25 MG CAP PO PRN (20:37)
[2023-08-19] MEDS ORDERED: Naloxone HCl 0.4 mg/ml Vial IV PRN (20:37)
[2023-08-19] MEDS ORDERED: diphenhydrAMINE 50 MG/ML VIAL IM PRN (20:37)
[2023-08-19] MEDS ORDERED: FENTANYL 500 MCG/10 ML VIAL 2,000 MCG in Sodium Chloride 0.9% 60 ML IV PRN (20:37)
[2023-08-19] MEDS ORDERED: Communication Order-Pharmacy FS SCH (20:45)
[2023-08-19] MEDS ORDERED: Fentanyl CADD 100 ML IVPB SCH (20:45)
[2023-08-19] MEDS ORDERED: Diazepam 5 MG TAB PO PRN (21:34)
[2023-08-19] MEDS: Ketorolac Tromethamine 30 MG (1 mL) VIAL IVP SCH (21:53)
[2023-08-19] MEDS: D5 1/2 NS w/20 mEq KCL 1,000 ML IV SCH (21:55)
[2023-08-19 22:17] VITALS: BMI 38.2
[2023-08-20 06:22] LABS: #Basophils Less than 0.03 10x3/uL (0.0-0.2); #Eosinphils Less than 0.03 10x3/uL (0.0-0.7); %Basophils 0.1 % (0.0-1.0); %Lymphocytes 11.3 % (21.0-51.0); %Monocytes 7.9 % (0.0-10.0); %Neutrophils 80.3 % (42.0-75.0); Hematocrit 39.2 % (36.0-47.0); Hemoglobin 12.4 g/dL (12.0-16.0); Mean Corpuscular HGB CONC 31.6 g/dL (32.0-36.0); Mean Corpuscular Hemoglobin 27.1 pg (27.0-31.0); Mean Corpuscular Volume 85.6 fL (78.0-98.0); Mean Platelet Volume 9.9 fL (7.4-10.4); Platelet Count 112 10x3/uL (130-400); RBC Distribution Width 17.5 % (11.5-14.5); Red Blood Cell (RBC) Count 4.58 mill/uL (4.20-5.40)
[2023-08-20 06:31] LABS: Anion Gap 14 mmol/L (10-20); BUN (Urea Nitrogen) 19 mg/dL (9.8-20.1); Calc. Creatinine Clearance 101 mL/min (70-130); Calcium 8.5 mg/dL (7.8-10.44); Carbon Dioxide 23 mmol/L (23-31); Chloride 107 mmol/L (98-107); Estimated GFR 79; Glucose 129 mg/dL (80-115); Potassium 4.3 mmol/L (3.5-5.1); Sodium 140 mmol/L (136-145)
[2023-08-20] MEDS: D5 1/2 NS w/20 mEq KCL 1,000 ML IV SCH (06:45)
[2023-08-20] MEDS: Morphine 4 MG/ML VIAL SLOW IVP PRN (06:49)
[2023-08-20] MEDS: Enoxaparin 40 MG (0.4 mL) SYRINGE SC SCH (09:15)
[2023-08-20] MEDS: Pantoprazole 40 MG VIAL IVP SCH (09:15)
[2023-08-20] MEDS: Pantoprazole DR 40 MG TAB PO SCH (09:17)
[2023-08-20] MEDS: Sertraline 100 MG TAB PO SCH ×2 (09:52→21:06)
[2023-08-20] MEDS: Rosuvastatin 20 MG TAB PO SCH (21:06)
[2023-08-20] MEDS: Hydrocodone-Acetamin 15 ML UDCUP PO PRN (21:06)
[2023-08-20] MEDS: Morphine 2 MG/ML VIAL SLOW IVP PRN (23:40)
[2023-08-21 08:24] VITALS: BP 120/70; TEMP 98.4
[2023-08-22] MEDS ORDERED: fentaNYL 75 mcg/hour Patch TD SCH (08:00)
== END 2023-08-21 10:50 | disposition home or self-care (01) | DRG 621 ==
LOC: SURG A 08-19 11:14 → EDSTATUS 08-20 09:30
PROVIDERS: ADMIT Specialist; ATTEND Specialist
PROC: 0D164ZA Bypass Stomach to Jejunum, Percutaneous Endoscopic Approach (ICD-10-PCS; principal; 2023-08-20)
DX: E66.01 Morbid (severe) obesity due to excess calories (principal); Z68.38 Body mass index [BMI] 38.0-38.9, adult; K66.0 Peritoneal adhesions (postprocedural) (postinfection); M79.3 Panniculitis, unspecified; Z79.899 Other long term (current) drug therapy; Z98.890 Other specified postprocedural states
CPT/HCPCS: 36415; 80048; 85025; 93005; 93010; C9113; J0171; J0665; J0690; J1100; J1644; J1650; J1885; J2001; J2250; J2270; J2272; J2405; J2704; J3010; J3480; J3490